=== PATIENT | male | born 1955 | race Caucasian/White ===

== ENCOUNTER 2018-01-07 10:13 | Emergency (ER) | payer OTHER ==
[~2018-01-07] VITALS: Ht 185.4 cm; Wt 110.2 kg
[~2018-01-07 10:13] MED LIST: GLIPIZIDE XL10 MG PO; METFORMIN HCL500 MG PO
[2018-01-07] MEDS ORDERED: LANTUS100 UNITS/ SUB-Q (10:39)
[2018-01-07] MEDS ORDERED: GABAPENTIN100 MG PO (10:41)
[2018-01-07] MEDS ORDERED: NORCO 5-325 TA1 EACH PO (10:51)
== END 2018-01-07 11:21 | disposition home or self-care (01) ==
LOC: ED 10:13
DX: S01.81XA Laceration without foreign body of other part of head, initial encounter (principal); E11.9 Type 2 diabetes mellitus without complications; Z87.891 Personal history of nicotine dependence; Z79.4 Long term (current) use of insulin; Z79.899 Other long term (current) drug therapy; W19.XXXA Unspecified fall, initial encounter; W22.8XXA Striking against or struck by other objects, initial encounter
CPT/HCPCS: 99282

== ENCOUNTER 2018-06-04 18:38 | Inpatient (IN) | payer MEDICARE, OTHER ==
[~2018-06-04] VITALS: Ht 185.4 cm; Wt 102.1 kg
[~2018-06-04 18:38] MED LIST changes: +GABAPENTIN100 MG PO; +LANTUS100 UNITS/ SUB-Q; +NORCO 5-325 TA1 EACH PO
--- NOTE | 2018-06-05 | NUR ---
PT ARRIVED TO UNIT FROM ED VIA STRETCHER IN 4 POINT LOCKED RESTRAINTS, PT AGGITATED AND COMBATIVE WHEN TRANSFERRED TO OTHER BED. 2 MG IV ATIVAN GIVEN. PT SWITCHED TO SOFT RESTRAINTS X 4 EXTREMITIES, WNL. PT NOT ORIENTED, DOES NOT OBEY COMMANDS. PT'S SIGNIFICANT OTHER STATES PT "HATES [facility]" AND THAT PT REFUSES TO SEEK MEDICAL CARE. SHAH TEMP PROB IN PLACE, YELLOW URINE DRAINING, TEMP 100.1. FULL ASSESSMENT TO BE COMPLETED. INSULIN GTT INFUSING AT 5 UNITS/HR.
--- NOTE | 2018-06-05 01:00 | NUR ---
PHONE CALL TO DR. BURGOS REGARDING CBG GREATER THAN 600 AND INSULIN PROTOCOL. PER PROVIDER START INSULIN GTT AT 8.8 UNITS/HR, CONTINUE TO TITRATE EACH HOUR PER INSULIN GTT PROTOCOL FOR CBG GREATER THAN 450, DO NOT EXCEED 20 UNIT/HR, OBTAIN LAB DRAW FOR GLUCOSE ASSESSMENT. INSULIN GTT CURRENT INFUSING AT 8.8 UNITS/HR. LAB TO OBTAIN DRAW. VANCO AND CEFEPIME INFUSING. LR INFUSING AT 200 ML/HR.
--- NOTE | 2018-06-05 02:00 | NUR ---
RESTRAINTS ASSESSED AND WNL. LAB REPORTS GLUCOSE AT 1817. INSULIN GTT TITRATED TO 13.2 UNITS/HR.
--- NOTE | 2018-06-05 03:00 | NUR ---
BEDSIDE CBG GREATER THAN 600. LAB DRAW REPORTS GLUCOSE AT 1754. INSULIN GTT TITATED TO 17.6 UNITS/HR. PT'S VITALS REMAIN UNCHANGED. PT NOTED TO HAVE INCREASED RESTLESS, SIGNIFICANT OTHER AT BEDSIDE REASSURING PT. WILL CONTINUE TO MONTIOR.
--- NOTE | 2018-06-05 03:45 | NUR ---
PT NOTED TO HAVE INCREASED AGGITATION AND COMBATIVE, DOES NOT RESPOND TO VERBAL COMMANDS OR REASSURANCE, 2 MG IV ATIVAN GIVEN. PHONE CALL RC'D FOR CRITICAL LAB VALUE OF SODIUM 91, CALCIUM 5.8. ADDITIONAL LABS SHOW POTASSIUM OF 2.7 AMD GLUCOSE OF 374. PHONE CALL TO DR. BURGOS REGARDING LABS. PER PROVIDER, REPEAT BMP STAT AND OBTAIN BEDSIDE CBG. CBG OBTAINED AND NOTED TO BE 234, INSULIN GTT TITRATED TO 6.8. DR. BURGOS AT BEDSIDE TO ASSESS PT AND UPDATE PLAN OF CARE.
--- NOTE | 2018-06-05 04:45 | NUR ---
DR. BURGOS UPDATED FAMILY ON PLANS OF POSSIBLE TRANSFER. CBG NOTED TO BE 182, INUSLIN GTT TITRATED TO 4.8.
--- NOTE | 2018-06-05 05:15 | NUR ---
REPEAT LABS REVIEWED BY DR. BURGOS AND NOTED TO BE WITHIN NORMAL RANGE, NO TRANSFER AT THIS TIME, FAMILY UPDATED. PER DR. BURGOS, REPEAT CBG Q30M, START D5W, REPEAT LABS AT 0600, START PRECEDEX GTT, CONTINUE TO MONITOR.
--- NOTE | 2018-06-05 05:30 | NUR ---
PRECEDEX GTT INFUSING AT 0.2 MCG/KG/MIN. PT CONTINUE TO BE COMBATIVE AND ATTEMPTING TO PULL OUT SHAH. 0.5 MG ATIVAN GIVEN.
--- NOTE | 2018-06-05 06:00 | NUR ---
PT CONTINUES TO BE AGGITATED AND COMBATIVE PRECEDEX GTT TITRATED TO 0.4 MCG/KG/MIN. CBG 123, INUSLIN GTT TITRATED TO 1.4 UNITS/HR.
--- NOTE | 2018-06-05 06:30 | NUR ---
AGGITATION AND COMMBATIVENESS CONTINUE PRCEDEX GTT TITATED TO 0.8 MCG/KG/MIN.
--- NOTE | 2018-06-05 07:00 | NUR ---
PT RESTING COMFORTABLY IN BED, RESPIRATION EVEN AND UNLABORED. REPORT GIVEN TO DAY SHIFT NURSES.
--- NOTE | 2018-06-05 07:30 | NUR ---
report recieved. CURRENTLY PATIENT IS CALM ON PRECEDEX GTT AT 0.6 MCG/KG/MIN. FAMILY MEMBERS ARE IN ROOM.
--- NOTE | 2018-06-05 08:00 | NUR ---
ASSESSMENT DONE. PATIENT WILL GRIMACE TO PAINFUL STIMULI, NOT FOLLOWING COMMANDS. SHAH CATH IS PATENT WITH GOLD URINE NOTED,REMAINS IN RESTRAINTS. ROM DONE.
--- NOTE | 2018-06-05 09:00 | NUR ---
DR. BURGOS AWARE OF BP, WILL CONTINUE TO MONITOR.
--- NOTE | 2018-06-05 10:50 | NUR ---
LR BOLUS HUNG PER ORDERS BP VIA MONITOR 67/53.
--- NOTE | 2018-06-05 11:00 | NUR ---
LEVOPHED GTT STARTED TO NEWLY STARTED IV SITE TO RIGHT INNER FA. IV TO L HAND INFILTRATED. PRECEDEX AND IVF OF D5 HELD AT THIS TIME, WILL START ANOTHER IV SOON POSSIBLE. LEVOPHED STARTED AT 2 MCG/MIN. LR BOLUS CONTINUE TO INFUSE. SEE VITAL SIGNS FOR BP'S
--- NOTE | 2018-06-05 11:10 | NUR ---
PATIENT IS OUT OF CONTROLL. PULLING ON RESTRAINTS. ATTEMPTING TO SIT UP IN BED, IS ATTEMPTIMG TO SAY FEW WORDS, UNABLE TO UNDERSTAND. UNABLE TO REASON WITH PATIENT. FAMILY IN ROOM. LEVOPHED INFUSING/INSULIN GTT INFUSING/LR BOLUS INFUSING/IVF AND PRECEDEX NOW INFUSING TO [facility] SITE. PRECEDEX INCREASED TO 0.8 MCG/KG/MIN. SEVERAL STAFF MEMBERS ARE IN ROOM.
--- NOTE | 2018-06-05 11:25 | NUR ---
REMAINS OUT OF CONTROLL, DR. BURGOS HERE AND AWARE. ATIVAN 2 MG IV GIVEN.
--- NOTE | 2018-06-05 12:09 | NUR ---
ATIVAN 2 MG IV GIVEN FOR SEVERE AGITATION.
--- NOTE | 2018-06-05 12:20 | NUR ---
MORE CALM NOW. LEVOPHED GTT INCREASED TO 5 MCG/MIN. SEE MONITOR PRINT OUT SHEET FOR FREQ VITAL SIGNS.
--- NOTE | 2018-06-05 12:38 | NUR ---
IS CALM AT THIS TIME. HOB FLAT. LEVOPHED GTT INFUSING AT 5MC/MIN.
--- NOTE | 2018-06-05 13:13 | EKG ---
[facility] [address] [facility] [place], [place] [address] Signed Sinus rhythm Left axis deviation Wide QRS rhythm T waves peaked Abnormal ECG No previous ECGs available Confirmed by AUDREY BURGOS DO ([id number]) on 06/05/2018 1:13:00 PM Electronically Signed By: AUDREY BURGOS DO 06/05/18 1313 PATIENT NAME: MK MILLER ELAINE Electrocardiogram DATE OF : 51 PHYSICIAN: AUDREY BURGOS DO REPORT #: [id number] REPORT IS CONFIDENTIAL AND NOT TO BE RELEASED WITHOUT AUTHORIZATION
--- NOTE | 2018-06-05 13:15 | EKG ---
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
--- NOTE | 2018-06-05 15:10 | NUR ---
RESTFUL SINCE LAST ATIVAN GIVEN AT 1209. TURNING PATIENT TO LISTEN TO LUNGS AND CHANGE BED LINENS. WHEN THIS DONE PATIENT AGAIN BECAME VERY AGITATED, ABLE TO UNDERSTAND FEW WORDS PATIENT SAYING. NOT ABLE TO REASON WITH PATIENT. PRECEDEX INCREASED 0.8 MCG/KG/HR. DR. BURGOS CALLED AND UPDATED ON PATIENT.
--- NOTE | 2018-06-05 15:50 | NUR ---
TOTAL OF 6 MG OF ATIVAN IN 2 MG INC GIVEN OVER A 15 MIN PERIOD.
--- NOTE | 2018-06-05 16:01 | NUR ---
HORTENCIA NOW. PLAN TO START VALIUM AT 1700 and WEAN OF PRECEDEX GTT. THIS PER DR. BURGOS ORDERS.
--- NOTE | 2018-06-05 16:25 | NUR ---
RANDELL VILLAREAL PER ORDERS. NO ORAL CARE GIVEN PATIENT IS VERY SENSITIVE TO CARES DONE.
--- NOTE | 2018-06-05 16:43 | NUR ---
SHORT RUN PAT NOTED ON MNITOR FOLLOWED BY FEW JUNCTIONAL BEATS. HR TO MID 40'S. DR. BURGOS NOTIFED.
--- NOTE | 2018-06-05 16:50 | NUR ---
PRECEDEX GTT TO OFF PER MD ORDERS.
--- NOTE | 2018-06-05 17:00 | NUR ---
VALIUM HELD PATIENT IS SEDATED. RASS-3 T0-4. HAVING SHORT PERIODS OF APNEA O2 SATS TO 88. O2 SOURCE CHANGED TO OXYMASK AT 4 L. NOISEY RESP.
--- NOTE | 2018-06-05 17:00 | NUR ---
REMIANS ON INSULIN GTT WITH HOURLY ACCUCHECKS. INSULIN GTT HAS BEEN TITRATED IS PER PROTOCOL.
--- NOTE | 2018-06-05 17:15 | NUR ---
DR. GREY HERE TO PLACE CVC. THIS DONE TO LEFT SUBCALVIAN. PATIENT TOLERATED WELL. PERMIT SIGNED BY PATIENT DAUGHTER.
--- NOTE | 2018-06-05 18:00 | NUR ---
CHEST XRAY DONE TO CONFIRM LINE PLACEMENT. DR. GREY SAYS OK TO USE.
--- NOTE | 2018-06-05 19:03 | NUR ---
VALIUM 10 MG IV GIVEN, LAST ATIVANN WAS GIVEN BEFORE 4 PM TODAY AND THE ROUTINE VALIUM AT 1700 WAS HELD DUE TO SEDATION.
--- NOTE | 2018-06-05 19:36 | NUR ---
REPORT TO NEXT SHIFT. PATIENT IS RESTFUL AT THIS TIME.
--- NOTE | 2018-06-05 20:21 | NUR ---
BS 146, INSULIN GTT TO 2.7 CONT LEVOPHED AT 7MCG/MIN. PT AT THIS TIME IS RESTFUL AND WAS ABLE TO WASH PT'S FACE. DR BURGOS IN TO CHECK ON PT. DAUGHTERS IN ROOM.
--- NOTE | 2018-06-05 21:16 | NUR ---
BS 117 INSULIN GTT TO 1.2 UNITS/HR. BP 116/74 LEVOPHED TO 5MCG/MIN.
--- NOTE | 2018-06-05 22:19 | NUR ---
CONT TO BE RESTFUL. BS 151, INSULIN TO 2 UNIT/HR.
--- NOTE | 2018-06-05 23:29 | NUR ---
AT 2229 REPOSITIONED PT HE THEN BECAME AGITATED, AND THEN FOUND TO BE INC OF STOOL. BE CARE DONE, PT WAS MORE AGITATED AND HAS BEEN GIVEN VALIUM 10MG AT 2249, 2309 AND 2324. STILL OCC PULLING AT RESTRAINTS. DID VERBALIZE HE WAS GOING TO FIGHT. HAS LOOSE COUGH.
--- NOTE | 2018-06-06 00:10 | NUR ---
PT HAS CONT TO BE AGITATED, VERBALLY THREATENING. UNABLE TO REASON WITH PT. DR BURGOS CALLED. PT HAS BEEN GIVEN TOTAL 3 PERN DOSES OF VALIUM, DR BURGOS CALLED AND ORDER FOR 60MG PHENOBARB RECIEVED. GIVEN WITHOUT EFFECT.
--- NOTE | 2018-06-06 00:44 | NUR ---
INSULIN TITRATED PER PROTOCOL TO 2.4 UNITS PER HR FOR BS OF 215 AT 0010. LEVOPHED OFF AT 0015. DR BURGOS GIVEN UPDATE AND PT RECIEVED 130MG PHENOBARBITOL AT 0015. IS STILL TRYING TO SIT UP. GIVEN 10MG VALIUM IV.
--- NOTE | 2018-06-06 01:10 | NUR ---
BS 220, INSULIN GTT TO 6.8 UNIT/S HR. PT HAD JUST RECIEVED ABX MIXED IN D5W. IS NOW QUIET SINCE LAST VALIUM WAS GIVEN
--- NOTE | 2018-06-06 02:10 | NUR ---
BS 151 INSULIN TO 3 UNITS/HR. IS NOW RESTLESS AND GRUNTING, NO VERBALIZING LIKE EARLIER. UNABLE TO REASURE PT. GIVEN SCHEDULED 20MG VALIUM IV.
--- NOTE | 2018-06-06 02:24 | NUR ---
CONT TO BE TRYING TO SIT UP, NO REASONING WITH PT. GIVEN 20MG VLAIUM IV.
--- NOTE | 2018-06-06 03:22 | NUR ---
BS 119 INSULIN TO 2 UNITS/HR. CONT TO GROWL AND BE AGITATED. GIVEN 20MG VALIUM IV. REMAINS OFF LEVOPHED.
--- NOTE | 2018-06-06 04:20 | NUR ---
INSULIN NOW AT 1.6 UNITS. PT IS MORE RESTFUL AT THIS TIME. ATTENDS DRY.
--- NOTE | 2018-06-06 05:34 | NUR ---
BS 177 INSULIN TO 2.4 UNITS AT 0505. WAS GIVEN 20MG VALIUM AT 0505. CONT TO BE RESTLESS AND VALIUM 20MG IV GIVEN NOW. EXPLAIN TO DAUGHTER THAT PT'S MENTAL STATUS MAY NOT IMPROVE FOR SEVERAL DAYS. GOAL IS TO KEEP PT CALM AND SEDATED FOR NOW.
--- NOTE | 2018-06-06 06:16 | NUR ---
VALIUM REPEATED AT 0605. PT WILL ARCH OFF BED AT TIMES. NO BM NOTED. TOTAL OF 60MG VLAIUM IV GIVEN SINCE 0500. FAMILY AT BEDSIDE. LABS WERE DRAWN PER CENTRAL LINE.
--- NOTE | 2018-06-06 06:47 | NUR ---
DR BURGOS CALLED RE PT BECOMING AGITATED AGAIN. NOTIFIED OF LABS. ORDER RECIEVED.
--- NOTE | 2018-06-06 07:15 | NUR ---
GIVEN 130MG PHENOBARBITOL IV. INSULIN TO 4.6 UNITS FOR BS 189.
--- NOTE | 2018-06-06 07:30 | NUR ---
REPORT RECIEVED. PATIENT IS IN BED, RESTLESS
--- NOTE | 2018-06-06 07:43 | NUR ---
VALIUM 10 MG IV REPEATED, PATIENT REMAINS RESTLESS. DAUGHTER IS IN ROOM.
--- NOTE | 2018-06-06 08:00 | NUR ---
ASSESSMENT DONE. ACCUCHECK-176, INSULIN GTT TO 3.6 PER INFUSION RATE SHEET. REMAINS RESTLESS AFTER PHENOBARB GIVEN.
--- NOTE | 2018-06-06 08:15 | NUR ---
DR. BURGOS UPDATED ON PATIENT, ORDERS RECIEVED TO REPEAT PHENABARB 130 MG IV, THIS TO BE DONE.
--- NOTE | 2018-06-06 09:40 | NUR ---
IS RESTLESS, DR. BURGOS AWARE, ORDERS RECIEVED TO GIVEN ATIVAN 2 MG IV.
--- NOTE | 2018-06-06 09:53 | NUR ---
ATIVAN 2 MG IV GIVEN PER ORDERS.
--- NOTE | 2018-06-06 12:10 | NUR ---
PT AT THIS TIME IS ONLY A LITTLE RESTLESS. PT HAS BEEN COUGING UP SOME PHLEM AND PT LET ME SUCTION IT OUT. SIGNIFICANT OTHER IS AT BEDSIDE. WILL CONTINUE TO MONITOR.
--- NOTE | 2018-06-06 13:34 | NUR ---
ativan 2 mg iv GIVEN. VERY RESTLESS.
--- NOTE | 2018-06-06 14:00 | NUR ---
ACCUCHECK 228, INSULIN GTT TO 6.8 UNITS/HR. REMAINS RESTLESS.
--- NOTE | 2018-06-06 15:00 | NUR ---
RESTLESS, REPOSITIONED. MOANING. ACCUCHECK 190. INSULIN GTT TO 5.6 UNITS/HR.
--- NOTE | 2018-06-06 15:15 | NUR ---
AIVAN 3 MG IV GIVEN FOR AGITATION/ANXIETY. REMAINS IN RESTRAINTS IS VERY UNPREDICABLE BEHAVIOR.
--- NOTE | 2018-06-06 16:00 | NUR ---
REMAINS RESTLESS. NO TREAMENT GIVEN AT THIS TIME. MOANS. MOVES BODY FREQUNETLY IN BED. SHAH PATENT WITH GOLD URINE. ASSESSMENT UNCHANGED.
--- NOTE | 2018-06-06 20:30 | NUR ---
PT OCC MOANS, GRUNTS AND MOVES WITHOUT APPARENT PURPOSE. WILL OCC PULL AT RESTRAINTS. WAS GIVEN 2MG ATIVAN IV AT 1999 PT STARTING TO BECOME INCREASED RESTLESS WITH NURSING CARE. FACE WASHED, CATH CARE DONE. ORAL CARE DONE. HAS DRY WHITE PATCHY SKIN ON LIPS AND TOUNGUE, MOUTH MOISTUIZER APPLIED. PT ABLE TO SETTLE AFTER CARES FINISHED.
--- NOTE | 2018-06-06 21:10 | NUR ---
BS 167 INSULIN FROM 2.7 TO 3.6 UNITS PER PROTOCOL.
--- NOTE | 2018-06-06 22:10 | NUR ---
HAS BEEN MORE RESTFUL TONIGHT. BS 155 INSLUIN TO 2 UNIT/S HR.
--- NOTE | 2018-06-06 23:20 | NUR ---
BS 180 INSULIN TO 2.4UNITS.
--- NOTE | 2018-06-07 00:15 | NUR ---
PT HAS BEEN MORE RESFUL TONIGHT. INC SMALL AMT STOOL, BE CARE DONE DRAW SHEET CHANGED AND PT REPOSITIONED. WAS ABLE TO GIVE ORAL CARE. WILL OCC MOAN/LAMIN.
--- NOTE | 2018-06-07 00:15 | NUR ---
Y ADDENDUM, BS 162 INSLUIN GTT TO 2 UNITS/HR.
--- NOTE | 2018-06-07 02:15 | NUR ---
BS 181, NO CHANGE IN INSULIN GTT. PT GIVEN ORAL CARE AND REPOSITIONED. MILDLY RESISTED ORAL CARE BUT WAS ABLE TO SETTLE. CONT TO HAVE WHITE PATCHY AREA ON FRONT OF TOUNGUE.
--- NOTE | 2018-06-07 03:25 | NUR ---
BS, 169, NO CHANGE IN INSULIN GTT. SCHEDULED DOSE OF ATIVAN HELD PT ADEQUATELY SEDATED AT THIS TIME.
--- NOTE | 2018-06-07 04:10 | NUR ---
BS 192, INSULIN GTT TO 4.2 UNIT/HR. PT REPOSITIONED AND MOIST SWAB TO MOUTH. WILL OCC COUGH BUT STILL RESTFUL.
--- NOTE | 2018-06-07 05:20 | NUR ---
BS WAS 193 AT 0500, NO CHANGE IN GTT. PT IS BECOMING MORE RESTLESS, MOVING HANDS RANDOMLY AND TRYING TO ARCH BACK. GIVEN 2MG ATIVAN IV. RESTRAINTS TO LOWER EXTREMITIES ARE UNTIED. CONT WRIST RESTRAINTS TO PROTECT SUBCLAVIAN. SUCTIONED ORALLY FOR MOD AMT SALIVA AND SPUTUM PT WAS TRYING TO CLEAR THROAT.
--- NOTE | 2018-06-07 06:05 | NUR ---
RESTING QUIETLY NOW. BS 154 INSULIN TO 2 UNITS /HR.
--- NOTE | 2018-06-07 08:00 | NUR ---
ASSESSMENT DONE. ATIVAN 2 MG IV GIVEN PATIENT IS SOMEWHAT RESTLESS. ROUTINE MEDICATIONS GIVEN. RESTRAINTS OFF FOR ROM.
--- NOTE | 2018-06-07 08:20 | NUR ---
ROUTINE AM CARES GIVEN, TOLEATING WELL WITH ATIVAN GIVEN EALIER. RESTRAINTS ARE NOT TIED AT THIS TIME. MOANING AT TIMES.
--- NOTE | 2018-06-07 09:00 | NUR ---
SITTING UP IN BED IN CHAIR POSITION, O2 TO 1 LITER. HAS OCC LOOSE COUGH.
--- NOTE | 2018-06-07 09:30 | NUR ---
DR. BURGOS HERE TO SEE PATIENT. ORDERS RECIEVED.
--- NOTE | 2018-06-07 09:55 | NUR ---
PHYS THERAPY HERE TO WORK WITH PATIENT. REMAINS IN SITTING POSITION. HAS EYES OPEN MORE THIS MORNING.
--- NOTE | 2018-06-07 10:15 | NUR ---
SPOKE WTIH PATIENTS FRIEND FRANCESCA IN ROOM. PATIENT STILL DROWSY AND IS NOT ANSWERING QUESTIONS. SHE STATES HE LIVES ALONE IN BASEMENT APARTMENT. SHE STATES SHE CAN STAY WITH HIM WHEN HE GOES HOME, IF NEEDED. DISCUSSED WE WON'T KNOW UNTIL CLOSER TO DISCHARGE WHAT HIS NEEDS WILL BE. SHE STATES HE NORMALLY DOES NOT USE ANY DME. SHE DENIES QUESTIONS AT THIS TIME. WILL CONTINUE TO FOLLOW.
--- NOTE | 2018-06-07 10:30 | NUR ---
lantus 35 UNITS SQ GIVEN PER ORDERS. WILL DC INSULIN GTT IN 1 HR PER MD ORDERS.
--- NOTE | 2018-06-07 12:00 | NUR ---
ASSESSMENT DONE. REMAINS RESTFUL. LAST ATIVAN GIVEN AT 808 THIS AM. FRIEND REMAINS IN ROOM. SHAH CATH REMAINS PATIENT. RESTRAINTS OFF.
--- NOTE | 2018-06-07 13:06 | NUR ---
SPOKE WITH DAUGHTER KOREY BY PHONE [phone]. SHE STATES HER DAD LIVES IN A BASEMENT APARTMENT. DOES NOT HAVE AMBULATION ISSUES. THERE ARE APPROX 1O OR MORE STEPS TO APARTMENT. SHE STATES HE LIVES ALONE. SHE STATES HE HAS BEEN VERY "STUBBORN ABOUT FOLLOWING DR ORDERS OR TAKING MEDICATIONS". SHE STATES SHE HAS A SISTER AND BROTHER. NO POA IS KNOWN. SHE STATES HIS FRIEND FRANCESCA DOES NOT LIVE WITH HIM. SHE STATES UNDERSTANDING THAT HE MAY NEED REHAB, OR OTHER CARE FOR AWHILE. SHE UNDERSTANDS WE WON'T KNOW WHAT ALL HE WILL NEED UNTIL HE IS FUTHER ALONG IN HIS ACUTE PHASE. WE DISCUSSED WE MAY HAVE A CARE CONFERENCE IN A FEW DAYS AND WHAT THAT IS. SHE STATES HE IS A , BUT IS UNSURE WHAT BENEFITS HE HAS. SHE HAS NO QUESTIONS AT THIS TIME. WILL CONTINUE TO FOLLOW.
--- NOTE | 2018-06-07 13:26 | NUR ---
REMAINS RESTFUL. ACCUCHECK 204, KCL INFUSING. MAINTANCE IVF HELD WHILE KCL INFUSING.
--- NOTE | 2018-06-07 14:00 | NUR ---
NO CHANGES. NO ATIVAN GIVEN SINCE APPROX 0800 THIS AM
--- NOTE | 2018-06-07 14:57 | NUR ---
PT UNRESPONSIVE, SIG OTHER SEPIDEH IN RM WITH PT. SHE IS PLEASANT AND QUITE FRIENDLY-REQUESTED PRAYER FOR PT. WILL CONTINUE TO FOLLOW NEEDED
--- NOTE | 2018-06-07 16:00 | NUR ---
RESTLESS AT TIMES, BUT ABLE TO CONTROL. IS ATTEMPTIMG TO SAY FEW WORD AT TIME. REPOSITION SELF IN BED. SKIN INTACT.
--- NOTE | 2018-06-07 18:28 | NUR ---
visiting with family/ FRIENDS. PABLO PENA, TAKING CLEAR LIQUIDS.
--- NOTE | 2018-06-07 19:21 | NUR ---
REPORT TO NEXT SHIFT. NO FUTHER CHANGES.
--- NOTE | 2018-06-07 19:30 | NUR ---
REPORT RC'D FROM DAY SHIFT NURSE. PT CURRENTLY RESTING INEBD WITH EYES CLOSED, RESPIRATIONS EVEN AND UNLABORED.
--- NOTE | 2018-06-07 20:19 | OR ---
[facility] [address] [place], [place] [address] Signed DATE OF OPERATION: 06/05/2018 SURGEON: Nohemy Grey MD PREOPERATIVE DIAGNOSES: Hypotension, severe metabolic abnormalities, need for central venous access. POSTOPERATIVE DIAGNOSES: Hypotension, severe metabolic abnormalities, need for central venous access. PROCEDURE PERFORMED: Left subclavian Arrow Blue Tip triple-lumen catheter placement. ANESTHESIA: 1% lidocaine. INDICATION: A 63-year-old white man is in a sedated state, previously very combative, admitted with acidosis including a lactic acid of 6.6 and diabetes out of control. He is on an insulin drip. Central venous access is requested as he does require pressor agent to maintain reasonable blood pressure at this time. The risks of bleeding, infection, pneumothorax, and so forth were reviewed with his two daughters and significant other, who provided administrative informed consent to him at this time. FINDINGS: Dark, nonpulsatile blood was noted from the left subclavian vein. Catheter threaded without problem. Aspiration showed good function of the catheter. DESCRIPTION OF PROCEDURE: The patient was placed in supine position. His head turned slightly to the right. The left infraclavicular space was prepared with chlorhexidine solution and draped sterilely. Lidocaine 1% was injected without causing any disruption to the patient. Sterile drape was used of course as were sterile gown, gloves, and so forth per hospital protocol. Using a Seldinger technique, the left clavicular space was interrogated with a needle and using a Seldinger technique the left subclavian vein easily accessed showing dark nonpulsatile blood. A flexible J-wire was passed down the wire without problem and the needle was removed. The site was incised with an #11 blade and a previously inspected and irrigated Arrow Blue Tip triple-lumen catheter was passed over the wire without problem and the wire withdrawn through the distal port. Aspiration on the distal port showed dark nonpulsatile blood. Claves had been applied to the ports Electronically Signed By: NOHEMY GREY MD 06/07/182018 PATIENT NAME: MK MILLER OPERATIVE REPORT DATE OF : 51 REPORT #: [id number] PHYSICIAN: NOHEMY GREY MD PCP: DARREL KELLY REPORT IS CONFIDENTIAL AND NOT TO BE RELEASED WITHOUT AUTHORIZATION [address] [address] Signed and they were flushed. Catheter was secured to the skin with enclosed Kirt needle and silk suture. An anti-infective disk was applied as was a SorbaView dressing. A postprocedure chest x-ray was performed in the intensive care unit confirming good placement of the catheter, no sign of complication. MD CHADWICK Barrera/MODL /[id number] cc: MD Darrel Parker Copies: AUDREY BURGOS BRUCE ~ Electronically Signed By: NOHEMY GREY MD 06/07/182018 PATIENT NAME: MK MILLER OPERATIVE REPORT DATE OF : 51 REPORT #: [id number] PHYSICIAN: NOHEMY GREY MD PCP: DARREL KELLY REPORT IS CONFIDENTIAL AND NOT TO BE RELEASED WITHOUT AUTHORIZATION
--- NOTE | 2018-06-07 20:19 | CONS ---
[facility] [address] [place], [place] [address] Signed DATE OF CONSULTATION: 06/05/2018 CONSULTING PHYSICIAN: Nohemy Grey MD PROBLEM: Need for central venous access, hypotension, on pressors, and advanced DKA. HISTORY: This 63-year-old white man, was admitted to the hospital with very much altered consciousness. 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 He had profound confusion and was walking around on broken glass with a cut to his foot. He is known to have significant diabetes and is completely noncompliant in taking of his medication and watching diet and so forth. He also smokes. He has been feeling poorly for the past year or so. He is known to have chronic obstructive pulmonary disease as well. He reportedly uses methamphetamine and marijuana from time to time as well. He has been admitted and required pressor agents as well as significant sedation due to delirium and combativeness. Recently, a norepinephrine drip has been initiated and request is made for a central venous catheter for reliable infusion as well as for IV access for other purposes. LABORATORY DATA: His admission lab studies to show a sodium of only 116, potassium of 6.6, creatinine of 1.86. Lactic acid of 6.6. More recent lab studies today showed an elevated white count of 20.5 (initial white count 9.5), hematocrit of 48.5, and platelet count of 190,000. Toxicology screen showed no illicit drugs in system. Alcohol level negligible and acetone level 1 to 16. Urinalysis was essentially normal except for large urine glucose. Coag studies are normal. His ABG today shows a venous pH of 7.44, O2 of 66. REVIEW OF SYSTEMS: He is unable to communicate anything about his situation. He appears to be deeply sedated. He is accompanied by his two daughters and his significant other. PHYSICAL EXAMINATION: GENERAL: A large white male with a thick bravo. He is breathing deeply, but not excessively rapidly. He is unresponsive to stimulation overall. CHEST: Shows normal respiratory excursion. There is no audible wheeze. ABDOMEN: Nondistended and soft. EXTREMITIES: Show no clubbing, cyanosis, or edema. Blood pressure with pressor agent currently is 131, peripheral blood cuff noted. He has no angulation deformity of the clavicles. Electronically Signed By: NOHEMY GREY MD 06/07/182018 PATIENT NAME: MK MILLER CONSULTATION DATE OF : 51 REPORT #: [id number] PHYSICIAN: NOHEMY GREY MD PCP: SIDNEY KELLY REPORT IS CONFIDENTIAL AND NOT TO BE RELEASED WITHOUT AUTHORIZATION [facility] [address] [place], [place] [address] Signed ASSESSMENT: Central venous access has been requested for further management to include pressor agents, blood draws, and so forth. The patient is usually quite combative and is currently in a sedated, state for which this may be a window of opportunity for safe placement of a central line. The subclavian approach in the left side would be optimal considering his thick bravo and access to the right internal jugular being somewhat limited in that way. I reviewed with the two daughters and his significant other the risks of bleeding, infection, pneumothorax, and so forth. They understand and have signed in his absence a consent form. PLAN: Central venous line, Arrow blue tip triple-lumen catheter preferred. MD CHADWICK Barrera/MARYAML /[id number] Copies: ~ Electronically Signed By: NOHEMY GREY MD 06/07/182018 PATIENT NAME: MK MILLER CONSULTATION DATE OF : 51 REPORT #: [id number] PHYSICIAN: NOHEMY GREY MD PCP: SIDNEY KELLY REPORT IS CONFIDENTIAL AND NOT TO BE RELEASED WITHOUT AUTHORIZATION
--- NOTE | 2018-06-07 20:51 | NUR ---
PT RESTING IN BED, MEDICATED, RESPONDS TO PRESSURE AND SOUND. SINUS RHYTHM ON MONITOR. BUL CLEAR AND DIMINSHE DIN BLL, OCCANSSIONAL HARCH COUGH WITH THICK WHITE SPUTUM, ORAL CARE PROVIDED. BOWEL TONES ACTIVE. SHAH CATH IN PLACE DRAINING TEA COLORED URINE WITH SEDIMENT. LEFT ARM/HAND RED AND WARM, ELEVATED ON PILLOW. ROM PROVIDED. SPO2 96% ON ROOM AIR.
--- NOTE | 2018-06-07 22:00 | NUR ---
NO ACUTE CHANGES.
--- NOTE | 2018-06-07 23:00 | NUR ---
NO ACUTE CHANGES. RESPIRATIONS EVEN AND UNLABORED.
--- NOTE | 2018-06-08 00:45 | NUR ---
NO ACUTE CHANGES IN ASSESSMENT. RESPIRATIONS EVEN AND UNLABORED. NO ACUTE DISTRESS.
--- NOTE | 2018-06-08 02:16 | NUR ---
PT ABLE SPIT OUT VERY LARGE AMT OF VERY THICK TENACIOUS FISH, YELLOW SPUTUM. WAS ABLE TO DO ORAL CARE AND REMOVED LARGE AMT OF THICK SECRETIONS. STILL HAS WHITE SECRETIONS ADHERED TO ROUGH OF MOUTH AND FRONT OF TOUNGUE.
--- NOTE | 2018-06-08 02:30 | NUR ---
LARGE SOFT BM, LINEN CHANGED, PT REPOSITIONED, ROM PROVIDED.
--- NOTE | 2018-06-08 04:45 | NUR ---
NO ACUTE CHANGES.
--- NOTE | 2018-06-08 06:41 | NUR ---
PT MORE AWAKE AND REQUESTING WATER, PROVIDED, TOLERATED WELL. PT VERBALIZED, "MY ARM HURTS" ASKED IF HE WOULD LIKE A WARM BLANKET, REPLIED "YES," PROVIDED, ASKED IF IMPROVED, PT STATES "YES." PT ABLE TO OPEN EYES WITH COMMAND. PT REQUESTING TO SIT UP, HOB ELEVATED. PT RESTLESS IN BED. WILL CONTINUE TO MONITOR.
--- NOTE | 2018-06-08 06:56 | NUR ---
PT MORE RESTLESS AND ATTEMPING TO GET OUT OF BED. PT STATES,"I GOT TO LEAVE" ATTEMPTED TO REASSURE PT, UNABLE TO CALM. PT ATTEMPTING TO GET OUT OF BED.
--- NOTE | 2018-06-08 07:30 | NUR ---
REPORT RECIEVED. PATIENT IS MOVING AROUND IN BED, IS RESTLESS.
--- NOTE | 2018-06-08 07:50 | NUR ---
OOB TO CHAIR VIA OVERHEAD LIFT.
--- NOTE | 2018-06-08 08:41 | NUR ---
PATIENT UP TO RECLINER WITH 3 PERSON ASSIST AND KRISTIE. PATIENT RECLINED BACK, MUMBLING WITH SLURRED SPEECH. PATIENT ASKED FOR WATER, WHEN A DRINK WAS PROVIDED PATIENT STATED " FUCK THIS WATER". OFFERED OTHER, PATIENT STATED " [place]". PROVIDED PATIENT WITH BITES OF [place]ER[place]INA, TOLERATED WELL. DR. BURGOS TO ROOM TO ROUND. NO NEW ORDERS AT THIS TIME. MORNING MEDICATIONS ADMINISTERED. CBG 232, SLIDING SCALE PROVIDED. CENTRAL LINE FLUSHES AND DRAWS BACK BLOOD FROM ALL THREE PORTS, HEP LOCKED. FULL BODY ASSESMENT DONE. SIGNIFICANT OTHER SEPIDEH AT BEDSIDE. CONTINUING TO REPOSITION PATIENT IN RECLINER, KEEPS TRYING TO SLIDE OUT THE BOTTOM, STATES " GET ME OUT OF HERE".
--- NOTE | 2018-06-08 10:07 | NUR ---
PROVIDED PATIEN WITH BED BATH, PATIENT HAD BM, BACK TO BED WITH KRISTIE AND 3 PERSON ASSIST. PATIENT VERBALIZES "I AM HURTING EVERYWHERE". REPOSITIONED WITH PILLOWS, ADMINISTERED 650 MG OF TYELENOL AND 2 MG ATIVAN PO.
--- NOTE | 2018-06-08 11:10 | NUR ---
RESTFUL AT THIS TIME. IVF INFUSING TO LEFT SUBCLAVIAN, SHAH CATH PATENT.
--- NOTE | 2018-06-08 12:30 | NUR ---
trying to GET OOB, ON BEDPAN TO ATTEMPT BM. SPEECH IS SLURRED, SAYING GET ME UP. RESTLESS.
--- NOTE | 2018-06-08 13:30 | NUR ---
VERY RESTLESS, ACTING THOUGH HE NEEDS TO HAVE ANOTHER BM. PLACED PATIENT ON BED ADDISON. SMALL STOOL NOTED AT RECTUM. PATIENT IS SAYING HE WANTS OOB. NO ABLE O REASON WITH PATIENT. MOVING AROUND IN BED ALOT. RECTAL DONE. LARGE AMOUNT OF STOOL NOTED IN RECTUM. AWARE. NAYA CHAPA ORDERED.
--- NOTE | 2018-06-08 13:38 | NUR ---
FLEETS ENEMA GIVEN, THEN USED OVERHEAD LIFT TO TRANSFER TO COMMODE. WAS ABLE TO HAVE LARGE BM WHILE ON COMMODE, THEN TRANSFERRED BACK TO BED WITH LIFT.
--- NOTE | 2018-06-08 14:00 | NUR ---
VERY RESTLESS. TRYING TO GET OOB. ATIVAN 2 MG IV GIVEN. PT REPEATS SELF SAYING GET ME UP.
--- NOTE | 2018-06-08 14:05 | NUR ---
PULLING AT GOWN AND BED LINENS. GOWN OFF.
--- NOTE | 2018-06-08 16:00 | NUR ---
ASSESSMENT DONE. MOANING, SAYING FEW WORDS. RESTLESS.
--- NOTE | 2018-06-08 16:30 | NUR ---
MORE CALM AFTER HOB ELEVATED.
--- NOTE | 2018-06-08 17:00 | NUR ---
SLEEPING, NO DISTRESS NOTED.
--- NOTE | 2018-06-08 19:00 | NUR ---
REMAINS ASLEEP. NO DISTRESS NOTED. REPORT TO NEXT SHIFT.
--- NOTE | 2018-06-08 19:50 | NUR ---
MED REC COMPLETE
--- NOTE | 2018-06-08 20:44 | NUR ---
HAS BEEN INCREASINGLY AGITATED AND TRYING TO GET OOB. UNABLE TO RATIONLIZE WITH PT. PT ALSO MAKING SEXUALLY INNAPROPRIATE COMMENTS. HAVE GIVEN ATIVAN 2MG IV X2 TIMES IN PAST 30MIN FOR AGITATION.
--- NOTE | 2018-06-08 21:20 | NUR ---
PT HAS CONT TO TRY TO GET UP AND NOT FOLLOW INSTRUCTIONS, PULLING AT WIRES AND COVERS. GIVEN 4MG ATIVAN IV.
--- NOTE | 2018-06-08 22:13 | NUR ---
CONT TO BE RESTLESS. GIVEN 2MG ATIVAN IV. HAVE HAD A NURSE AT BEDSIDE SINCE 1999.
--- NOTE | 2018-06-08 22:55 | NUR ---
PT REMAINS RESTLESS, 2MG ATIVAN IVP GIVEN, CONTIOUES TO RAISE UP OUT OF THE BED, THROW LEGS OVER THE RAILS, NOT REDRICTABLE.
--- NOTE | 2018-06-08 23:34 | NUR ---
CONT TO BE RESTLESS AND KICKING WITH LEGS. GIVEN 4MG ATIVAN IV.
--- NOTE | 2018-06-08 23:49 | NUR ---
PT HAS INC OF STOOL 2200, BE CARE DONE.
--- NOTE | 2018-06-09 00:33 | NUR ---
HAS BEEN ABLE TO SLEEP SINCE LAST DOSE OF ATIVAN. SAT TO 87%, 02 1 NC APPLIED AND SAT IN TO 96%.
--- NOTE | 2018-06-09 02:35 | NUR ---
YBS 136, NO INSULIN GIVEN. RESTFUL THOUGH DOES RESPOND TO PAINFUL STIM BY MOVING AWAY.
--- NOTE | 2018-06-09 04:30 | NUR ---
RESTLESS. INC LARGE LIQ STOOL. BE AREA CLEANED. CONT RESTLESS PULLING AT LEADS ETC AND UNABLE TO FOLLOW DIRECTIONS. GIVEN 2MG ATIVAN IV. R HEEL NOTED TO BE REDDENED FROM PUSHING ON BED AND BEDDING SO FREQ.
--- NOTE | 2018-06-09 04:49 | NUR ---
CONT RESTLESS AND TRYING TO GET OOB. GIVEN 4MG ATIVAN IV
--- NOTE | 2018-06-09 05:04 | NUR ---
WILL GROAN LOADLY AND TURN SIDE TO SIDE. WHEN ASKED WHAT IS WRONG PT STATES "MY BELLY". BOWEL TONES ARE VERY ACTIVE, ABD IS SOFT. IS PASSING GAS AND DID JUST HAVE LIQ STOOL.
--- NOTE | 2018-06-09 05:25 | NUR ---
PT TURNED SELF TO R SIDE AND FELL ASLEEP.
--- NOTE | 2018-06-09 06:44 | NUR ---
SLEEPING AT THIS TIME.
--- NOTE | 2018-06-09 07:30 | NUR ---
PT SHIFT REPORT RECEIVED FROM PROCUREMENT PROFESSIONAL RN. PT IS RESTING IN BED AT THIS TIME. PT IS MOVING IN BED AND SPEECH IS GARBLED. PT IS CONFUSED AND NOT MAKING SENSE. PT OCCASSIONALLY TTRYING TO SIT UP. WILL CONTINUE TO CLOSELY MONITOR.
--- NOTE | 2018-06-09 09:15 | NUR ---
PT ASSESSMENT COMPLETED. BREATH SOUNDS CLEAR. BOWEL TONES ACTIVE. PT DOES NOT WAKE MUCH WITH STIMULATION AT THIS TIME. WILL CONTINUE TO CLOSELY MONITOR. MD DURAN TO CHANGE MEDICATION ORDERS. SHAH REMAINS IN PLACE WITH YELLOW URINE PRESENT.
--- NOTE | 2018-06-09 11:45 | NUR ---
PT AWAKE AND TALKING AND FOLLOWING SOME COMMANDS. PT ALLOWED STAFF TO CHANGE HIS ATTENDS AND REPOSITION HIM IN BED. EARLY INTERVENTION SCHOOL PSYCHOLOGIST IN TO HELP WITH BED BATH AND LINEN CHANGE. PT TOLERATED WELL. PT SPEACH IS GARBLED AND PT REMAINS CONFUSED, BUT IS ABLE TO FORM SENTENCES. WILL GIVE PO MEDICATION WHILE PT IS AWAKE.
--- NOTE | 2018-06-09 12:00 | NUR ---
ORAL MEDICATIONS GIVEN WITH SOME PUDDING. PT TOELRATED WELL. PT IS YELLING AT TIMES AND SAYING INNAPPROPRAITE COMMENTS TO STAFF. WILL CONTINUE TO CLOSELY MONITOR. PT IS OCCASSIONALLY SITTING UP AND TRYING TO GET OUT OF BED. MANAGER INTEGRATED AT BEDSIDE.
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
--- NOTE | 2018-06-09 12:45 | NUR ---
POLICE GUARD RN IN WITH PATIENT FOR HIS SAFETY TO PREVENT HIM FROM HURTING STAFF OR PULLING OUT LINES/TUBES AND HURTING HIMSELF. PT IS NOT FOLLOWING ANY COMMANDS AT THIS TIME. PER MD DURAN GIVE 5MG OF ATIVAN IV. WILL CONTINUE TO CLSOELY MONITOR.
--- NOTE | 2018-06-09 13:00 | NUR ---
PT MORE RELAXED AT THIS TIME AND NOT PULLING AT HIS TUBES/LINES. PT IS NO LONGER BEING AGGRESSIVE TOWARDS STAFF OR YELLING INAPROPRIATE/SEXUAL COMMENTS AT STAFF. WILL CONTINUE TO CLOSELY MONITOR.
--- NOTE | 2018-06-09 14:00 | NUR ---
PT RESTING IN BED AND THROWING HIS LEGS OUT OF BED OCCASIONALLY. SHAH REMAINS IN PLACE WITH YELLOW URINE NOTED. CENTRAL LINE REMAINS IN PLACE. PT RESTING AT THIS TIME. WILL CONTINUE TO CLOSELY MONITOR.
--- NOTE | 2018-06-09 16:00 | NUR ---
PT SHAH EMPTIED. ASSESSMENT REAMISN UNACHANGED FROM PREVIOUS ASSESSMENT. PT CONTINUES TO REST AT THIS TIME. REPOSITIONED PT FOR COMFORT. WILL CONTINUE TO CLOSELY MONITOR.
--- NOTE | 2018-06-09 17:00 | NUR ---
UPDATED ROGER GRIFFITHS REGARDING MAGNESIUM LAB THAT WAS ADDED ON THIS AM. NO NEW ORDERS AT THIS TIME. WILL CONTINUE TO CLOSELY MONITOR. PT REMAINS RESTFUL AT THIS TIME.
--- NOTE | 2018-06-09 18:30 | NUR ---
PT REPOSITIONED WITH PILLOW SUPPRT. PT MOUTH SUCTIONED. PT DID NOT WAKE WITH MOVEMENT OR SUCTIONING. PT GROANED WHEN MOVED, BUT TOLERATED WELL. PT CONTINUES RESTING AFTER MOVEMENT. WILL CONTINUE TO CLSOELY MONITOR.
--- NOTE | 2018-06-09 19:20 | NUR ---
RECEIVED REPORT FROM CORDELL DENNY. PATIENT IS RESTFUL WITH EYES CLOSED, BREATHING IS EVEN AND UNLABORED, O2 SATURATION IS 99% ON 2L O2 VIA OXYMASK, TITRATED TO ROOM AIR. SHAH INTACT, DRAINING YELLOW URINE. CENTRAL LINE INTACT, IVF INFUSING PER ORDER. CALL LIGHT WITHIN REACH, BED ALARM ON.
--- NOTE | 2018-06-09 20:13 | NUR ---
PATIENT IS RESTFUL WITH EYES CLOSED, BREATHING IS EVEN AND UNLABORED, CIWA 0. CENTRAL LINE DRESSING INTACT, IVF INFUSING PER ORDER. SHAH PRESENT, DRAINING QS YELLOW URINE. CALL LIGHT WITHIN REACH.
--- NOTE | 2018-06-09 20:52 | NUR ---
PATIENT REPOSITIONING SELF IN BED, DOES NOT APPEAR TO BE IN DISTRESS. DOES NOT OPEN EYES TO VOICE BUT MOANS WHEN VERBALLY STIMULATED. REMAINS RESTFUL, BREATHING IS EVEN AND UNLABORED, SPO2 97% ON ROOM AIR. CALL LIGHT WITHIN REACH, BED ALARM ON.
--- NOTE | 2018-06-09 22:00 | NUR ---
PATIENT IS MOVING OFTEN IN BED, GROANING LOUDLY STATING "GET ME UP." ASSISTED PATIENT WITH REPOSITIONING ON SIDE, PROVIDED WARM BLANKET. AFTER FIVE MINUTES, PATIENTS EYES CLOSED AGAIN AND IS NOW RESTFUL. CALL LIGHT WITHIN REACH.
--- NOTE | 2018-06-09 23:10 | NUR ---
PATIENT RESTFUL WITH EYES CLOSED, BREATHING IS EVEN AND UNLABORED. CIWA 0. SHAH DRAINING YELLOW QS URINE, CENTRAL LINE INTACT, INFUSING IVF PER ORDER. CALL LIGHT WITHIN REACH, BED ALARM ON.
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
--- NOTE | 2018-06-10 01:20 | NUR ---
PATIENT CONTINUES TO YELL "I HAVE TO TAKE A SHIT. HELP ME UP." EDUCATED PATIENT ABOUT FALL PREVENTION AND THAT IT IS NOT SAFE TO STAND AT THIS TIME. PATIENT STATES "I DON'T CARE, I JUST NEED TO POOP AND TAKE A PISS." EDUCATED PATIENT THAT HE HAS SHAH CATHETER, PLACED ON BEDPAN. THIS RN AN KAYLYNN DIXON REMAIN AT BEDSIDE.
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
--- NOTE | 2018-06-10 02:20 | NUR ---
UPDATED DR. ROGER PEARL PATIENT'S CONTINUED AGITATION, RASS SCORE +4. 5 MG IV HALDOL X1 ORDERED. RN NAHOMY, RN EVANGELISTA, KAYLYNN DIXON AT BEDSIDE. DRESSING CHANGED FOR CENTRAL LINE DONE DUE TO PATIENT SCRATCHING DRESSING OFF. CENTRAL LINE REMAINS INTACT.
--- NOTE | 2018-06-10 05:15 | NUR ---
PATIENT RESTFUL WITH EYES CLOSED, BREATHING IS EVEN AND UNLABORED, REQUIRED O2 THERAPY WITH OXYMASK DUE TO SPO2 OF 87% AT REST. HEART RATE WELL CONTROLLED, RR 19. RASS 0. CENTRAL LINE REMAINS INTACT, IVF INFSUING PER ORDER, SHAH CATHETER ALSO REMAINS INTACT. THIS RN REMAINS AT BEDSIDE FOR SAFETY.
--- NOTE | 2018-06-10 05:54 | NUR ---
PATIENT RESTFUL WITH EYES CLOSED, RASS SCORE +1. CENTRAL LINE REMAINS INTACT, SHAH INTACT. CALL LIGHT WITHIN REACH, BED ALARM ON.
--- NOTE | 2018-06-10 11:20 | NUR ---
PABLO CORBETT DC'D PER 'S ORDERS. PT NAZANIN WELL.
--- NOTE | 2018-06-10 12:00 | NUR ---
VS HAVE BEEN TAKEN AND DOCUMENTED. PT IS RESTING IN BED AT THIS TIME. WILL INFORM RN OF VSS. DAUGHTER IS AT THE BEDSIDE AND HAS NO NEEDS AT THIS TIME. CALL LIGHT IS IN REACH. WILL CONTINUE TO MONITOR PT.
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
--- NOTE | 2018-06-10 19:30 | NUR ---
REPORT RECEIVED, PT RESTING IN BED, EYES CLOSED, BREATHS EVEN, UNLABORED, ON RA, IV FLUIDS INFUSING PER EMAR, VSS, NO REQUESTS AT THIS TIME, NO SIGNS OF RESTLESNESS OR AGITATION, CALL LIGHT WITHIN REACH, BED ALARM ON.
--- NOTE | 2018-06-10 20:22 | NUR ---
PATIENT RESTLESS AND AGITATED, RASS SCORE +2, RASS SCORE +3 WITH INTERACTION WITH STAFF. 2MG IV PRN HALDOL GIVEN. CALL LIGHT WITHIN REACH, BED ALARM ON. CORDELL BROWNELE AT BEDSIDE.
--- NOTE | 2018-06-10 21:00 | NUR ---
PT RESTING IN BED, ALERT, UNABLE TO ASSESS ORIENTATION, PT ABLE TO OCCASIONALLY COMMUNICATE NEEDS WITH SHORT PHRASES, OCCASIONAL GRIMACES AND GROANS NOTED, PT GIVEN PRN HALDOL BY CORDELL VICK, SEE NOTES. PT INCONTINENT OF URINE X2 ATTENDS CHANGED, BEDDING CHANGED, ASSESSMENT COMPLETE, HEART SOUNDS REGULAR, BT ACTIVE, PULSES STRONG THROUGHOUT. PT DROWSY, FREQUENTLY IN AND OUT OF SLEEP, VSS, BED ALARM ON, CBG 124, NO INSULIN COVERAGE PROVIDED, PT WAS ABLE TO TAKE SEVERAL SIPS OF WATER AND ABLE TO TAKE PO PILL, NO REQUESTS AT THIS TIME, CALL LIGHT WITHIN REACH. BED ALARM ON. IV FLUIDS INFUSING PER EMAR. CENTRAL LINE HEPARIN LOCKED.
--- NOTE | 2018-06-10 22:56 | NUR ---
PT RESTING IN BED, EYES CLOSED, BREATHS EVEN, UNLABORED, NO SIGNS OF AGITATION OR DISTRESS, NO REQUESTS AT THIS TIME, CALL LIGHT WITHIN REACH, IV FLUIDS INFUSING PER EMAR WNL, CALL LIGHT WITHIN REACH, BED ALARM ON.
--- NOTE | 2018-06-11 00:12 | NUR ---
PT RESTING IN BED, EYES CLOSED, BREATHS EVEN, UNLABORED, VSS, NO SIGNS OF DISTRESS OR AGITATION, NO SIGNS OF DISCOMFORT, PT'S IV FLUIDS INFUSING PER EMAR WNL, BED ALARM ON, FALL PRECAUTIONS IN PLACE, CALL LIGHT WITHIN REACH. VISIBLE FROM NURSES STATION.
--- NOTE | 2018-06-11 00:30 | NUR ---
PT NOTED TO BECOME INCREASINGLY AGITATED, YELLING INTO THE HALLS, GRABBING AT IV TUBING AND ATTEMPTING TO ROLL OUT OF BED, PT GIVEN PRN HALDOL PER EMAR FOR AGITATION, PT CONTINUES TO YELL IN THE TOLLIVER NEW ATTENDS PLACED, PT PLACED ON BED ADDISON, PT UNABLE TO PASS A BM, PT'S BEDDING CHANGED, PT CONTINUES TO BE RESING IN BED, IV FLUIDS INFUSING PER EMAR, BED ALARM ON, VSS, FALL PRECAUTIONS IN PLACE.
--- NOTE | 2018-06-11 01:33 | NUR ---
PT INCONTINENT OF URINE, PT'S ATTENDS CHANGED, PT CONTINUES TO YELL INTO HALLS, GROANING, PT DISORIENTED, CONFUSED, UNABLE TO ASSESS ORIENATATION, PT ABLE TO COMMUNICATE IN SHORT PHRASES, FALL PRECAUTIONS IN PLACE, BED ALARM ON, IV FLUIDS INFUSING PER EMAR WNL. REORIENTATION PROVIDED, REASSURANCE PROVIDED. PT REPOSITIONED IN BED FOR COMFORT. VISIBLE FROM NURSES STATION.
--- NOTE | 2018-06-11 02:15 | NUR ---
PT RESTING IN BED, EYES CLOSED, BREATHS EVEN, UNLABORED, NO REQUESTS AT THIS TIME, NO SIGNS OF RESTLESNESS OR AGITATION, IV FLUIDS INFUSING PER EMAR, CALL LIGHT WITHIN REACH, FALL PRECAUTIONS IN PLACE.
--- NOTE | 2018-06-11 03:30 | NUR ---
PT RESTING IN BED, OCCASIONAL GROAN, PT'S ATTENDS CHANGED, BEDDING CHANGED, REPOSITIONED IN BED, PT QUICKLY BACK TO SLEEP, NO REQUESTS AT THIS TIME, PT REMAINS CONFUSED, UNABLE TO ASSESS ORIENTATION, VSS, CALL LIGHT WITHIN REACH, FALL PRECAUTIONS IN PLACE, IV FLUIDS INFUSING PER EMAR WNL.
--- NOTE | 2018-06-11 05:14 | NUR ---
PT AWAKE, OCCASIONALLY GROANING IN BED, PT NOTED TO HAVE LARGE AMOUNT OF WHITE MUCOUS ON PT'S TONGUE, PT SPITTING, ORAL CARE PROVIDED, PT'S MOUTH SUCTIONED AND CLEANED WITH SPONGES, PT TOLERATED WELL, PT TURNED IN BED FOR COMFORT, NO FURTHER REQUESTS AT THIS TIME, ATTENDS DRY, CALL LIGHT WITHIN REACH, FALL PRECAUTIONS IN PLACE, IV FLUIDS INFUSING PER EMAR, VISIBLE FROM NURSES STATION.
--- NOTE | 2018-06-11 06:30 | NUR ---
PT RESTING IN BED, EYES CLOSED, BREATHS EVEN, UNLABORED, NO REQUESTS AT THIS TIME, NO SIGNS OF RESTLESNESS OR AGITATION, PT'S VSS, CALL LIGHT WITHIN REACH, IV FLUIDS INFUSING PER EMAR. FALL PRECAUTIONS IN PLACE.
--- NOTE | 2018-06-11 09:00 | NUR ---
PT DROWSY BUT ANSWERING QUESTIONS APPROPRIATLY. PT IN SITTING POSITION IN THE BED. PT STATES "MY BODY HURTS", 650 MG PO TYLENOL GIVEN. PT DENIES NAUSEA AND SOB. PT STATES "I HAD A BAD DREAM THAT I WAS IN THE HOSPITAL" WHEN TOLD THAT HE WAS IN THE HOSPITAL PT STATES "BUT I DON'T WANT TO BE". PT COOPERATIVE AND POLITE, ABLE TO FOLLOW DIRECTIONS. PT TAKES PILLS WITH ASSISTANCE, DRINKING ENSURE.
--- NOTE | 2018-06-11 09:34 | NUR ---
PT ASSISTED TO A STANDING POSITION WITH USE OF OVERHEAD SLING AND 3 STAFF. PT NOT ABLE TO STAND WITH WEIGHT ON HIS FEET FOR LONGER THAN 10 SECONDS. PT DROWSY AND A HEAVY ASSIST BACK TO BED. PT WANTED TO STAND AT THE BEDSIDE TO TRY TO VOID INTO THE URINAL, NOT ABLE TO NAZANIN PHYSICAL ACTIVITY. PT DOES NOT WANT TO USE THE URINAL WHILE LAYING IN BED.
--- NOTE | 2018-06-11 10:05 | NUR ---
ASSISTED PT TO STAND AT THE BEDSIDE WITH ONE OTHER NURSE. PT IS A HEAVY TWO PERSON ASSIST, NOT ABLE TO STAND FOR LONGER THAN 30 SECONDS. PT INSISTING THAT HE CAN WALK TO THE BATHROOM. PT PUT BACK TO BED BY 2 STAFF. PT APPEARS TO BE VERY FATIGUED BY HIS EFFORTS. TOTAL AMOUNT OF TIME PT PHYSICALY EXHERTED HIMSELF ABOUT 15 MIN.
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
--- NOTE | 2018-06-11 11:30 | NUR ---
IV STARTED IN RT FOREAM BY LILLY LANDA. PT COOPERATIVE, SLIGHTLY DROWSY AND CONFUSED. PT SIGNIFICANT OTHER IS AT THE BEDSIDE.
--- NOTE | 2018-06-11 11:55 | NUR ---
CENTRAL LINE DC'D PER . PT UNCOOPERATIVE AT TIMES. SITE APPEARS NORMAL, SUTURES REMOVED. TIP OF LINE INTACT, NOTHING NOTED TO BE MISSING OR BROKEN. BACITRACIN ON GAUZE USED FOR DRESSING WITH OP SITE OVER THE TOP. MODERATE PRESSURE APPLIED TO SITE AFTER LINE REMOVAL FOR APROXIMATLY 10 MIN. NO SIGNS OF BLEEDING OR HEMATOMA NOTED. PT VITALS WNL, NO ACUTE CHANGES TO MENTAL STATUS.
--- NOTE | 2018-06-11 12:29 | NUR ---
FULL REPORT CALLED TO MARCO A LANDA ON MED/SURG FLOOR.
--- NOTE | 2018-06-11 12:34 | NUR ---
PATIENT REPORT RECEIVED FROM KEVIN LANDA FROM CCU, PATIENT IS COMING OVER FROM CCU TO ROOM 121 AT THIS TIME
--- NOTE | 2018-06-11 12:53 | NUR ---
PATIENT ARRIVED ASLEEP IN HIS BED WITH HIS , VITALS DONE AND ASSESSMENT COMPLETE.
--- NOTE | 2018-06-11 15:47 | NUR ---
PATIENT IS AWAKE AND ORIENTED BUT SPEECH REMAINS SLURRED, SCHEDULED MEDICATION GIVEN AND HE DENIES OTHER NEEDS, AT BEDSIDE
--- NOTE | 2018-06-11 15:52 | NUR ---
PATIENT RESTING IN BED. GIRLFRIEND IN ROOM. ATTEND CHANGED. WARM BLANKETS PROVIDED. ICE WATER GIVEN. CALL LIGHT WITHIN REACH. NO OTHER NEEDS AT THIS TIME
--- NOTE | 2018-06-11 17:12 | NUR ---
PATIENT 3 PERSON TRANSFERRED TO THE COMMODE TO VOID. BE CARE DONE AND PM MEDICATIONS GIVEN WITH A NICOTINE PATCH TO THE BACK. PATIENT HAS BEEN WANTING TO LEAVE TO SMOKE. AT BEDSIDE ASSISTING HIM WITH DINNER.
--- NOTE | 2018-06-11 18:34 | NUR ---
PRESSURE ALARM PLACED ON THIS PATIENT AT THIS TIME, HE REMAINS UP IN THE CHAIR AFTER RN WHEELED THE PATIENT UP AND DOWN THE HALLWAY. PATIENT IS RESTING WITH EYES CLOSED, NO S/S OF DISTRESS OR PAIN CURRENTLY.
--- NOTE | 2018-06-11 19:26 | NUR ---
[facility] CORDE[facility] SAM[facility]. PT RESTING IN BED, RR EVEN AND UNLABORED. PT IN CHAIR, CHAIR PRESSURE ALARM ON. PT APPEARS COMFORTABLE, CALL LIGHT IN REACH. IV FLUIDS INFUSING PER MD ORDERS, SITE WNL.
--- NOTE | 2018-06-11 22:00 | NUR ---
ASSESSMENT COMPLETE. VSS. SCHEDULED MEDICATIONS GIVEN (SEE EMAR). PT A/OX3, SPEECH GARBLED, DIFFICULT TO UNDERSTAND AT TIMES. NICOTINE PATCH PLACED ON DAYSHIFT IN PLACE ON PT'S SHOULDER BLADES. ASSISTED PT WITH REPOSITIONING IN BED. FRESH WATER AT BEDSIDE. NO FURTHER NEEDS, CALL LIGHT IN REACH. IV FLUIDS INFUSING PER MD ORDERS, SITE WNL. BED ALARM ON.
--- NOTE | 2018-06-11 22:45 | NUR ---
PATIENT HOYERED FROM CHAIR TO BSC AND THEN TO BED, 3 PA. DEPENDS CHANGED. FRESH WATER GIVEN. CALL LIGHT IN REACH. NO FURTHER NEEDS AT THIS TIME.
--- NOTE | 2018-06-11 23:16 | NUR ---
FED PT SOME JELLO AND SOME CHOCOLATE GLUCERNA PER PT REQUEST. REPOSITIONED PT UP IN HIS BED. HELPED HIM USE THE URINAL. FRESH WATER GIVEN.
--- NOTE | 2018-06-11 23:26 | NUR ---
WITH THE HELP OF CORDELL RMAIREZ WE REPOSITIONED PT IN BED AGAIN
--- NOTE | 2018-06-11 23:55 | NUR ---
pt reports 9/10 pain in shoulders. prn tylenol given. spilled water on floor cleaned. fresh water with new cup provided. call light in reach.
--- NOTE | 2018-06-12 00:19 | NUR ---
PROVIDED PT'S LIFE PARTNER BERYL WITH UPDATE. ALL QUESTIONS ANSWERED.
--- NOTE | 2018-06-12 02:30 | NUR ---
BS RESULT OF 195, 3 UNITS SS GIVEN. ASSESSMENT COMPLETE. NO NEW CONCERNS. PT A/O TO SELF, IMPATIENT, AND VERY RESTLESS. PT FREQUENTLY USING CALL LIGHT REQUESTING ASSISTANCE WITH REPOSITIONING. IV FLUIDS INFUSING PER MD ORDERS, SITE WNL. CALL LIGHT IN REACH. BED ALARM ON.
--- NOTE | 2018-06-12 02:38 | NUR ---
PER CORDELL RAMIREZ I TOOK PT'S BLOOD PRESSURE AND HEART RATE. INFORMED HER OF RESULTS.
--- NOTE | 2018-06-12 02:42 | NUR ---
DID A BLOOD SUGAR ON PT. GAVE HIM SOME SUGAR FREE PUDDING. I HELPED HIM TO USE THE URINAL. WITH THE HELP OF CORDELL RAMIREZ WE CHANGED HIS ATTEND INCONTINENT WITH URINE. REPOSITIONED PT IN BED. CALL LIGHT IN REACH.
--- NOTE | 2018-06-12 03:55 | NUR ---
WITH THE HELP OF SECURITY AND RN RAFAEL WE HELPED PT TO THE BSC AND BACK TO BED WITH THE GAIT BELT. ATTENDS PUT ON. NEW SHEET AND BLANKET GIVEN DUE TO HIS OTHERS BEING WET. BEDSIDE TABLE AND CALL LIGHT IN REACH. BED ALARM SET.
--- NOTE | 2018-06-12 05:12 | NUR ---
PT IN BED, HOB ELEVATED, UNCOVERED PER CHOICE, EYES CLOSED. BED ALARM ON.
--- NOTE | 2018-06-12 05:45 | NUR ---
PT A/OX3, SPEECH GARBLED AND CAN BE DIFFICULT TO UNDERSTAND AT TIMES. PT HAS SCHEDULED BS CHECKS WITH INSULIN SS. BOWEL TONES ACTIVE, PT DENIED NAUSEA THIS SHIFT. 1/2NS WITH 20 MEQ POTASSIUM @ 125/HR, SITE WNL. PT RESTLESS THROUGHOUT THE NIGHT, VERY IMPATIENT AT TIMES WITH CARE. PT INCONTINENT AT TIMES, NO BM THIS SHIFT. PT IS A HEAVY 3PA OR USE OF KRISTIE.
--- NOTE | 2018-06-12 06:35 | NUR ---
WITH ASSIST OF 3 AND GAIT BELT, PT WAS ASSISTED TO SIDE OF BED, TO STAND AND TO BSC. CUEING TO STAND UP TALL VS LEAN OVER, PT WAS ABLE TO SLOW MOVE FEET AND SIT ON THE BSC WITHOUT INCIDENT. TENDS TO LEAN FORWARD WHILE ON THE BSC, URINATED, THEN PT WAS ABLE TO PUSH SELF TO A STANDING POSITION WITH HELP, MOVE FEET AND SIT ON THE BED, ABLE TO SCOOT SELF TO THE HOB WITH NO HELP, MIMINAL ASSISTANCE GETTING HIS LEFT LEG INTO BED, BUT ONCE IN BED, HE WAS ABLE TO REPOSITION SELF. NOTE HIS BP ELEVATES ON EXERTION, AFTER HE WAS IN BED FOR 10 MIN HIS BP WAS STILL SLIGHTLY ELEVATED TO 162/94. NOTED HIS BP HAS BEEN ELEVATED WITH OTHER VS TODAY. WILL MESSAGE
--- NOTE | 2018-06-12 07:57 | NUR ---
PATIENT REPORT RECEIVED FROM CATHY LANDA, PATIENT 2 PERSON ASSIST UP TO THE CHAIR, HE IS MUCH MORE STEADY ON HIS FEET THIS AM AND WAS ABLE TO WALK INTO THE BATHROOM TO VOID.
--- NOTE | 2018-06-12 08:02 | NUR ---
PATIENT'S BREAKFAST ORDERED
--- NOTE | 2018-06-12 09:34 | NUR ---
PATIENT TX WITH TWO PERSON ASSIST TO THE BED FROM THE CHAIR. HE IS CRYING WITH C/O SHOULDER PAIN, 650MG OF TYLENOL GIVEN PO.
--- NOTE | 2018-06-12 10:01 | NUR ---
PATIENT 2 PERSON ASSIST UP TO THE BATHROOM WITH FWW. PATIENT ATTENDS DRY AND HE WAS AMBULATED BACK TO BED, HOB ELEVATED AND RAILS UP WITH ALARM ON.
--- NOTE | 2018-06-12 11:04 | NUR ---
PATIENT TOOK A SHOWER WITH HOSPITAL DIRECTOR, TOLERATED WELL AND TX TO BED WITH 1 PERSON ASSIST
--- NOTE | 2018-06-12 11:56 | NUR ---
patient's blood glucose checked at this time, 218 currently, patient given 3 units of insulin sq. patient worked with physical therapy and tolerated activity well. no further c/o pain.
--- NOTE | 2018-06-12 13:00 | NUR ---
patient's iv saline locked at this time, doctor pineda in the room to evaluate the patient and patient very aggitated with the doctor, requesting pain medication for c/o shoulder pain, patient threatened to fight the doctor stating he will leave if he is not given pain medications at this time.
--- NOTE | 2018-06-12 13:15 | EKG ---
[facility] [address] [facility] [place] [address] Signed Normal sinus rhythm Normal ECG When compared with ECG of 04-JUN-2018 20:48, Vent. rate has decreased BY 37 BPM Criteria for Anterior infarct are no longer present Confirmed by CHIN DURAN MD ([id number]) on 06/12/2018 1:15:09 PM Electronically Signed By: CHIN DURAN MD 06/12/18 1315 PATIENT NAME: MK MILLER ELAINE Electrocardiogram DATE OF : 51 PHYSICIAN: CHIN DURAN MD REPORT #: [id number] REPORT IS CONFIDENTIAL AND NOT TO BE RELEASED WITHOUT AUTHORIZATION
--- NOTE | 2018-06-12 14:08 | NUR ---
PATIENT SITTING UP IN CHAIR. GIRLFRIEND IN ROOM. VITAL SIGNS AND I&O DONE. CHAIR ALARM ON. CALL LIGHT WITHIN REACH. NO OTHER NEEDS AT THIS TIME
--- NOTE | 2018-06-12 14:34 | NUR ---
PATIENT UP TO THE CHAIR, FAMILY LEFT AFTER COMING TO VISIT FOR AN HOUR, PATIENT DENIES ANY PAIN IN HIS SHOULDERS AFTER TAKING 1 NORCO PO. IN THE ROOM AND CHAIR ALARM ON.
--- NOTE | 2018-06-12 15:29 | NUR ---
PATIENT ASLEEP UP IN THE CHAIR, ALARM REMAINS ON, SCHEDULED MEDICATION GIVEN
--- NOTE | 2018-06-12 16:55 | NUR ---
patient 1 person assisted into bed at this time, blood sugar was 225, 3 units of insulin given sq and new nicotine patch placed on the left arm. patient remains alert and oriented at this time.
--- NOTE | 2018-06-12 18:21 | NUR ---
PATIENT ASSISTED WITH HIS DINNER HE WAS NOT ABLE TO HOLD THE FORK FOR A LONG PERIOD OF TIME, HE STARTED TO COUGH AND NEED TO BLOW HIS NOSE, PATIENT ASSISTED UP TO THE BATHROOM TO VOID, PATIENT BLOWING HIS NOSE, C/O SHOULDER PAIN 01/11 1 NORCO GIVEN PO
--- NOTE | 2018-06-12 18:24 | NUR ---
PATIENT HAS HAD MORE STREANGTH TODAY AND WAS ABLE TO AMBULATE TO THE BATHROOM WITH 1 PERSON ASSIST AND HIS FWW. HE HAS BEEN ABLE TO USE THE BATHROOM APPROPRIATLY INSTEAD OF BEING INCONTENET TODAY. HE IS STILL HAVING TROUBLE GRABING ONTO OBJECTS FOR A LONG PERIOD OF TIME DUE TO SHOULDER PAIN. NORCO WAS ORDERED THIS AFTERNOON BY THE DOCTOR TO HELP RELEIVE SOME OF THE PAIN. HE REMAINS ALERT AND ORIENTED AT THIS TIME BUT IS STILL NEEDING TO HAVE THE ALARM ON HIM A REMINDER TO CALL FOR HELP
--- NOTE | 2018-06-12 18:44 | NUR ---
PATIENT HAS NOT BEEN HAVING ANY FURTHER LOOSE STOOL SINCE ARRIVAL ON THE FLOOR, LAB CALLED AND REQUESTED ADDITIONAL STOOL DUE TO NOT RECEIVING ENOUGH WHEN PATIENT WAS IN THE CCU, DOCTOR MARYLOU CANCELLED THE SAMPLE AT THIS TIME.
--- NOTE | 2018-06-12 19:05 | NUR ---
SHIFT REPORT RECEIVED FROM DAYSHIFT RN AT BEDSIDE. PT AWAKE IN BED WISHING TO GO TO CHAIR. RN YAO WITH PT TO ASSIST IN TRANSFER. BED ALRM ON, ASSISTED PT WITH CALLING LIFE PARTNER KOREY. NO FURTHER NEEDS, CALL LIGHT IN REACH.
--- NOTE | 2018-06-12 19:30 | NUR ---
HELPED PT WITH HIS CELL PHONE TO MAKE A CALL. BED ALARM SET. CALL LIGHT IN REACH.
--- NOTE | 2018-06-12 19:45 | NUR ---
BED ALARM GOING OFF. ASSISTED PT WITH MAKING PHONE CALL AND HELPED PT WITH REPOSITIONING. BED ALARM ON, NO FURTHER NEEDS. CALL LIGHT IN REACH.
--- NOTE | 2018-06-12 20:37 | NUR ---
PT'S CHAIR ALARM SOUNDED. PT WAS TRYING TO GET INTO BED WITH HELP OF FRIEND SEPIDEH. ASSISTED PT TO BED AND BED ALARM IS ON. SEPIDEH PLANS ON STAYING THE NIGHT. CALL LIGHT IS CLOSE.
--- NOTE | 2018-06-12 21:05 | NUR ---
GAVE PT PEN AND PAPER PER REQUEST, HE IS AT THE EDGE OF THE BED AT THIS TIME BEING MONITORED FROM NURSES STATION WITH BED ALARM ON.
--- NOTE | 2018-06-12 21:28 | NUR ---
ASSISTED PT TO SCOOT UP IN BED. ALARM IS ON AND CALL LIGHT IS CLOSE.
--- NOTE | 2018-06-12 21:51 | NUR ---
VITALS I&OS AND BLOOD SUGAR DONE AND CHARTED. BEDSIDE TABLE AND CALL LIGHT IN REACH. FRESH ICE WATER GIVEN.
--- NOTE | 2018-06-12 22:45 | NUR ---
ASSESSMENT COMPLETE. MEDICATIONS GIVEN (SEE EMAR). BS RESULT OF 235, 5 UNITS OF INSULIN SS GIVEN. PT SL, IV SITE WNL. PT'S LIFE PARTNER IN ROOM WITH PT. PT DROWSY, BUT EASILY AROUSABLE. PT DENIES PAIN, NO ADDITIONAL NEEDS. CALL LIGHT IN REACH, BED ALARM ON.
--- NOTE | 2018-06-12 22:45 | NUR ---
ASSISTED PT BACK TO BED WITH 2PA. PT DENIES FURTHER NEEDS. BED ALARM IS ON AND CALL LIGHT IS CLOSE.
--- NOTE | 2018-06-12 22:49 | NUR ---
WITH THE HELP OF CORDELL HALL WE GOT PT FROM THE CHAIR BACK TO BED. BED ALARM SET. GOT HIS GUEST A PILLOW , SHEETS AND TWO BLANKETS. THEY NEED NOTHING MORE AT THIS TIME.
--- NOTE | 2018-06-12 23:10 | NUR ---
PT REQUESTED PAIN MEDS FOR 11/10 PAIN. ADMINISTERED NORCO, PT DENIES FURTHER NEEDS AT THIS TIME. CALL LIGHT IS CLOSE AND BED ALARM IS ON.
--- NOTE | 2018-06-13 01:34 | NUR ---
PER PT'S GUEST IN HIS ROOM I GAVE HER SOME CHOCOLATE PUDDING AND TIFFANIE CRACKERS. SHE NEEDS NOTHING MORE AT THIS TIME.
--- NOTE | 2018-06-13 02:45 | NUR ---
ASSESSMENT COMPLETE. BS RESULT 85. PT DENIES SHAKINESS, DIZZINESS. DR HICKMAN AT NURSES STATION AND AWARE. THIS RN TOLD BY DR MARYLOU CHANG TO GIVE PT CHOCOLATE ENSURE DRINK TO PT TO HELP AVOID HYPOGLYCEMIC EPISODE. DR MARYLOU CHANG WITH CARB AND SUGAR COUNT FOR CHOCLATE ENSURE. MANAGER SALES RAFAEL ALSO AWARE. NO FURTHER ORDERS. PT DENIES ADDITIONAL NEEDS. BED ALARM ON AND CALL LIGHT IN REACH.
--- NOTE | 2018-06-13 03:00 | NUR ---
WITH THE HELP OF CORDELL RAMIREZ WE HELPED PT TO THE BATHROOM AND BACK TO BED WITH HIS FWW. BED ALARM ON. FRESH ICE WATER GIVEN. BEDSIDE TABLE AND CALL LIGHT IN REACH.
--- NOTE | 2018-06-13 03:47 | NUR ---
PT IN CHAIR, ALARM ON. PT TALKING TO . DECAF COFFEE GIVEN PER PT REQUEST. HOT CHOCOLATE PROVIDED FOR . NO FURTHER NEEDS, CALL LIGHT IN REACH.
--- NOTE | 2018-06-13 04:50 | NUR ---
HELPED PT TO THE BATHROOM AND BACK TO BED WITH HIS FWW. BEDSIDE TABLE AND CALL LIGHT IN REACH. HE NEEDS NOTHING MORE AT THIS TIME.
--- NOTE | 2018-06-13 05:00 | NUR ---
pt reports 10/10 pain in shoulders. 1 norco administered per pt request. no further needs, call light in reach. life partner in room.
--- NOTE | 2018-06-13 05:19 | NUR ---
BED ALARM GOING OFF. ASSISTED PT WITH TRANSFERING WITH FWW TO CHAIR. CHAIR ALARM ON. SODA PROVIDED TO PT'S PARTNER PER REQUEST. CALL LIGHT IN REACH.
--- NOTE | 2018-06-13 05:52 | NUR ---
VITALS AND I&OS DONE AND CHARTED. BEDSIDE TABLE AND CALL LIGHT IN REACH. PT NEEDS NOTHING AT THIS TIME. BED ALARM SET.
--- NOTE | 2018-06-13 08:22 | NUR ---
PT HAD A GOOD NIGHT. PT HAS SCHEDULED ACCUCHECKS WITH INSULIN SS. VOIDING QS. 1-2PA W/ FWW FOR AMBULATION. PT'S PARTNER STAYED THE NIGHT WITH PT. PAIN WELL CONTROLLED WITH PRN NORCO. VSS, PT ON RA. AT TIMES RESTLESS, BED/CHAIR ALARM ON FOR SAFETY.
--- NOTE | 2018-06-13 08:45 | NUR ---
PT SITTING UP AT EDGE OF BED. SIGNIFICANT OTHER SEPIDEH AT BEDSIDE. PT ALERT AND ORIENTED THIS AM. SBA WITH WALKER TO RESTROOM. DENIES PAIN OR OTHER CONCERNS AT THIS TIME. CALL LIGHT WITHIN REACH. BED ALARM ON.
--- NOTE | 2018-06-13 09:50 | NUR ---
PT UP TO RESTROOM WITH 1 PA FWW. PT FLUSHED TOILET UNMEASURED.
--- NOTE | 2018-06-13 11:57 | NUR ---
PT YANICK KNOX WITH PThao CARRASCO WITH FWW. NAZANIN WELL.
--- NOTE | 2018-06-13 13:04 | NUR ---
PT SITTING UP AT EDGE OF BED EATING LUNCH INDEPENDENTLY. DENIES NEEDS OR CONCERNS. CALL LIGHT WITHIN REACH. BED ALARM ON. PT VISIBLE FROM NURSES STATION.
--- NOTE | 2018-06-13 13:20 | NUR ---
PT REQUESTED TO GET UP TO GO FOR A WALK. THIS RN WAS PRESENT WITH PT FOR WALK IN HALLWAY. SBA WITH WALKER, PT STEADY ON FEET. AMB BACK TO BED. CALL LIGHT WITHIN REACH, SEPIDEH AT BEDSIDE.
--- NOTE | 2018-06-13 15:40 | NUR ---
PT UP TO AMB FOR ANOTHER WALK. 1 PA WITH WALKER, NAZANIN WELL. AMB BACK TO BED. CALL LIGHT WITHIN REACH.
--- NOTE | 2018-06-13 18:11 | NUR ---
PT RESTING IN BED AFTER EATING DINNER. WATCHING TV. DENIES NEEDS OR CONCERNS AT THIS TIME. PT ALERT AND ORIENTED THIS SHIFT, APPROPRIATE. CALL LIGHT WITHIN REACH.
--- NOTE | 2018-06-13 18:57 | NUR ---
RECIEVED CHANGE OF SHIFT REPORT FROM CORDELL BELLO. PATIENT RESTING IN BED WITH EYES CLOSED, RESPIRATORY RATE IS EVEN AND UNLABORED. FAMILY AT BEDSIDE. WHITE BOARD UPDATED. CALL LIGHT WITHIN REACH.
--- NOTE | 2018-06-13 20:54 | NUR ---
VITALS AND I&OS DONE AND CHARTED. BEDSIDE TABLE AND CALL LIGHT IN REACH. CLEANED UP ROOM.
--- NOTE | 2018-06-13 21:15 | NUR ---
ASSESSMENT COMPLETE. SCHEDULED MEDICATION ADMINISTERED PER JUL ORDER. INSULIN COVERAGE ADMINISTERED PER JUL ORDER. PATIENT REPORTS "5/10" PAIN IN BILATERAL SHOULDERS, PATIENT REPORTS PAIN IS "GETTING BETTER". ACTIVE BOWEL TONES. DIMINISHED LUNG SOUNDS NOTED. PATIENT REPORTS PAIN/TENDERNESS IN ABDOMEN, PATIENT REPORTS "STOMACH HURTS WHEN I GET INSULIN AND DON'T EAT ANYTHING", SUGAR FREE PUDDING PROVIDED. VISITOR AT BEDSIDE. IV PATENT AND WNL. PATIENT DENIES PAIN, SOB, OR DIFFICULTY BREATHING. CALL LIGHT WITHIN REACH. NO MORE NEEDS AT THIS TIME.
--- NOTE | 2018-06-14 00:10 | NUR ---
ROUNDED ON PATIENT RESTING IN BED WITH EYES CLOSED, RESPIRATORY RATE IS EVEN AND UNLABORED, NO SIGNS OF TENSING OR GRIMACING. CALL LIGHT WITHIN REACH.
--- NOTE | 2018-06-14 00:22 | NUR ---
HELPED PT FROM THE BATHROOM BACK TO BED WITH HIS FWW. BEDSIDE TABLE AND CALL LIGHT IN REACH. PT'S GUEST IS IN THE ROOM WITH HIM WHEN I LEFT. THEY NEED NOTHING AT THIS TIME.
--- NOTE | 2018-06-14 02:19 | NUR ---
ROUNDED ON PATIENT TO ASSESS BLOOD GLUCOSE PER ORDER. PATIENT BLOOD GLUCOSE 56 mg/dL. RUPALI RN ADMINISTERED DEXTROSE PER JUL ORDER AND THIS RN PROVIDED PATIENT WITH ORANGE JUICE. BLOOD GLUCOSE REASSESSED 30 MINUTES LATER TO BE 123 mg/dL. PATIENT DENIES HAVING ANY S/S OF HYPOGLYCEMIA. MESSAGE SENT TO DR. HICKMAN ABOUT HYPOGYCEMIC EPISODE. THIS RN SBA PATIENT TO RESTROOM WITH FWW. PATIENT DENIES BEING LIGHTHEADED/DIZZY WITH AMBULATION. WHEN ASKED ABOUT PAIN PATIENT STATES, "I'M DOING PRETTY GOOD RIGHT NOW". CALL LIGHT WITHIN REACH. NO MORE NEEDS AT THIS TIME.
--- NOTE | 2018-06-14 02:58 | NUR ---
ASSESSMENT COMPLETE. PATIENT DENIES PAIN, SOB, OR DIFFICULTY BREATHING. VISITOR AT BEDSIDE. HEAD OF THE BED ELEVATED GREATER THAN 30 DEGREES. WHITE BOARD UPDATED. PATIENT DENIES NUMBNESS AND TINGLING IN EXTREMITIES AT THIS TIME. PATIENT DISORIENTED TO DATE, REORIENT PRN. CALL LIGHT WITHIN REACH. NO MORE NEEDS AT THIS TIME.
--- NOTE | 2018-06-14 04:57 | NUR ---
ROUNDED ON PATIENT RESTING IN BED WITH EYES CLOSED, RESPIRATORY RATE IS EVEN AND UNLABORED. CALL LIGHT WITHIN REACH. VISITOR AT BEDSIDE.
--- NOTE | 2018-06-14 05:14 | NUR ---
ADA DIET. PT/OT. SBA WITH FWW. ACCU CHECKS WITH SS. SALINE LOCKED. ASPIRATION PRECAUTIONS. HYPOGLYCEMIC EVENT THIS SHIFT, DEXTROSE ADMINISTERED PER JUL ORDER AND ORANGE JUICE PROVIDED, BLOOD GLUCOSE REASSESSED AND WNL. PATIENT COMPLAINED OF PAIN EARLIER IN SHIFT, NO PRN PAIN MEDICATION REQUIRED. VISITORS AT BEDSIDE THROUGHTOUT SHIFT. ROOM AIR. BED ALARM FOR SAFETY.
--- NOTE | 2018-06-14 05:20 | NUR ---
ROUNDED ON PATIENT AMBULATING TO RESTROOM, THIS RN SBA PATIENT TO RESTROOM WITH FWW, PATIENT SAFELY BACK TO BED. PROVIDED EDUCATION TO PATIENT TO USE CALL LIGHT TO ENSURE PATIENT SAFETY, PATIENT EXPRESSED UNDERSTANDING. BED ALARM ON FOR SAFETY. CALL LIGHT WITH REACH. VISITOR AT BEDSIDE. NO MORE NEEDS AT THIS TIME.
--- NOTE | 2018-06-14 06:40 | NUR ---
rounded on patient for report of "7/10" pain in left shoulder, prn pain medication provided. bed alarm on for safety. call light within reach. no more needs at this time.
--- NOTE | 2018-06-14 08:00 | NUR ---
PT SITTING UP AT EDGE OF BED EATING BREAKFAST. ALERT AND ORIENTED. RATES SHOULDER PAIN 3/10, REPORTS NORCO HELPED. PT DENIES NAUSEA OR OTHER CONCERNS. SIGNIFICANT OTHER SEPIDEH AT BEDSIDE. ASSESSMENT COMPLETED. NICOTINE PATCH APPLIED EARLY PER PT OLD ONE FELL OFF EARLY YESTERDAY DURING SHOWER. PT APPROPRIATE THIS AM. CALL LIGHT WITHIN REACH.
--- NOTE | 2018-06-14 08:50 | NUR ---
PT YAMINI KNOX WITH FWW AND SBA FROM [facility]. PT NAZANIN DENG.
--- NOTE | 2018-06-14 11:40 | NUR ---
PT YANICK KNOX WITH P.T., WORKING ON BIKE IN P.T. ROOM, NAZANIN WELL.
[2018-06-14] MEDS ORDERED: NICOTINE PATCH1 EAC1 TD (13:03)
[2018-06-14] MEDS ORDERED: QUETIAPINE FUMA25 MG PO ×2 (13:04)
[2018-06-14] MEDS ORDERED: GABAPENTIN600 MG PO (13:04)
--- NOTE | 2018-06-14 13:04 | NUR ---
PT SITTING AT EDGE OF BED VISITING WITH Yandel BUNN. PT ALERT AND ORIENTED. DENIES NEEDS OR CONCERNS AT THIS TIME. CALL LIGHT WITHIN REACH.
[2018-06-14] MEDS ORDERED: METFORMIN HCL500 MG PO (13:06)
--- NOTE | 2018-06-14 13:45 | NUR ---
PT SITTING ON SIDE OF BED, SIG. Momo BUNN AT BS. PLEASANT VISIT, COMPLIMENTED ALL THE STAFF, AND SEEMED TO REALLY ENJOY THE MEALS. DISCOVERED PT IS A AND THANKED HIM FOR HIS SERVICE. PT SEEMED TO WANT TO TALK, LET HIM AIR-EXTENDED A BLESSING. WILL FOLLOW NEEDED
--- NOTE | 2018-06-14 13:58 | NUR ---
PATIENT READY TO GO HOME. GIRLFRIEND, SEPIDEH, IN ROOM WELL. PATIENT STATES THE REASON WHY HE IS IN HERE IS THAT HE COULDN'T AFFORD TEST STRIPS, PLUS HE WAS SICK FOR 9 DAYS AND FOR 3 OF THOSE DAYS ALL HE WAS CONSUMING WAS [employer] ROOTBEER AND JUICE. NOT AFFORDING TEST STRIPS IS RECENT SINCE HE TURNED 63 AND WENT ON MEDICARE. HE HAS BEEN LIVING WITH DIABETES SINCE 2008. HE HAS SOME DIFFERENT THEORIES ON HOW TO TREAT LOW BLOOD SUGAR. 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 HE BAKES OR SAUTES MEATS. LIKES SOFT VEGETABLES. HAS SEEN THE PLATE METHOD PICTURE BEFORE BUT DOESN'T ALWAYS FOLLOW IT. I GAVE HIM A PLAN YOUR MEALS BROCHURE AND A LOW CARBOHYDRATE SNACK LIST. THE 3 MAIN TOPICS OF DISCUSSION WERE: 1) HOW TO TREAT A LOW BLOOD SUGAR, 2) NORMAL RANGE FOR A FASTING BLOOD SUGAR WHICH HE SAID 70-120, AND 3) AVOID SKIPPING MEALS, AND KNOWING WHERE ALL THE CARBOHYDRATES ARE COMING FROM IN THE DIET, NOT JUST SUGARS, THOUGH THOSE SHOULD BE KEPT TO A MINIMUM. I DID EMPHASIZE FIBER IS REALLY BENEFICIAL FOR DIABETES AND EXPLAINED SOME FOODS THAT ARE GOOD SOURCES OF FIBER. GOOD DISCUSSION. THEY DIDN'T HAVE MANY QUESTIONS THEY ARE READY TO GO. MY CARD PROVIDED IN CASE PATIENT NEEDS MORE HELP WITH MEAL PLANNING.
[2018-06-14] MEDS ORDERED: LORCET HD 10-31 EACH PO (14:18)
== END 2018-06-14 14:35 | disposition home or self-care (01) | DRG 637 ==
LOC: ED 18:38 → CCU 22:29 → MS 06-11 12:45
PROVIDERS: ADMIT Student in an Organized Health Care Education/Training Program
PROC: 02HV33Z Insertion of Infusion Device into Superior Vena Cava, Percutaneous Approach (ICD-10-PCS; principal; 2018-06-05)
PROC: 3E033XZ Introduction of Vasopressor into Peripheral Vein, Percutaneous Approach (ICD-10-PCS; 2018-06-05)
DX: E11.10 Type 2 diabetes mellitus with ketoacidosis without coma (principal); G93.41 Metabolic encephalopathy; R65.10 Systemic inflammatory response syndrome (SIRS) of non-infectious origin without acute organ dysfunction; F10.231 Alcohol dependence with withdrawal delirium; N17.9 Acute kidney failure, unspecified; E87.0 Hyperosmolality and hypernatremia; J44.9 Chronic obstructive pulmonary disease, unspecified; F17.200 Nicotine dependence, unspecified, uncomplicated; M25.519 Pain in unspecified shoulder; R26.81 Unsteadiness on feet; R94.31 Abnormal electrocardiogram [ECG] [EKG]; I95.2 Hypotension due to drugs; E87.5 Hyperkalemia; T42.6X5A Adverse effect of other antiepileptic and sedative-hypnotic drugs, initial encounter; Y92.239 Unspecified place in hospital as the place of occurrence of the external cause; Z88.8 Allergy status to other drugs, medicaments and biological substances; Z79.4 Long term (current) use of insulin; Z91.14 Patient's other noncompliance with medication regimen; Z79.899 Other long term (current) drug therapy; Z66 Do not resuscitate
CPT/HCPCS: 36415; 51702; 70450; 71045; 80048; 80053; 80069; 80076; 81001; 82010; 82140; 82607; 82746; 82800; 82803; 82947; 82977; 83036; 83605; 83615; 83690; 83735; 84100; 84425; 84443; 85025; 85610; 85651; 85730; 86780; 87040; 87205; 87449; 87493; 87502; 87899; 93005; 93010; 94640; 96361; 96374; 96375; 97110; 97116; 97163; 97165; 97530; 99291; 99292; 99406; C9113; G0480; J0610; J0692; J1630; J1650; J1815; J2060; J2405; J2550; J2560; J3360; J3370; J3411; J3475; J3480; J7030; J7040; J7060; J7070; J7120

== ENCOUNTER 2018-12-20 20:16 | Emergency (ER) | payer MEDICARE, OTHER ==
[~2018-12-20] VITALS: Ht 185.4 cm; Wt 111.1 kg
[~2018-12-20 20:16] MED LIST changes: +CLOPIDOGREL75 MG PO; +COLACE CLEAR50 MG PO; +GABAPENTIN600 MG PO; +GLIPIZIDE10 MG PO; +LISINOPRIL10 MG PO; +LORCET HD 10-31 EACH PO; +METFORMIN HCL1000 MG PO; +NICOTINE PATCH1 EAC1 TD; +ONDANSETRON ODT8 MG PO; +PERCOCET 7.5-31 EACH PO; +QUETIAPINE FUMA25 MG PO; +SULINDAC200 MG PO; +VENTOLIN HFA18 GM INH
--- OUTSIDE RECORDS SUMMARY | 2018-12-20 20:18 | XMS ---
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 Taiwo VISIT COUNT (12 MO.) 4 [facility] TOTAL 4 NOTE: Visits indicate total known visits. ED/UCC VISIT TRACKING (12 MO.) 12/20/2018 20:17 [facility] [place] TYPE: Emergency COMPLAINT: - BACK/HIP PAIN 12/04/2018 02:47 [facility] [place] TYPE: Emergency COMPLAINT: - BACK PAIN DIAGNOSES: - Low back pain - control clerk head (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 - Other intervertebral disc displacement, lumbar region - Other heel reducer (current) drug therapy - Contusion of lower back and pelvis, initial encounter - Type 2 diabetes mellitus without complications - Fall on same level, unspecified, initial encounter 06/04/2018 18:38 [facility] [place] TYPE: Emergency COMPLAINT: - ALTERED LOC 01/07/2018 10:14 [facility] [place] TYPE: Emergency COMPLAINT: - FALL/LIP LACERATION DIAGNOSES: - Other heel reducer (current) drug therapy - control clerk head (current) use of insulin - Laceration without foreign body of other part of head, initial encounter - Unspecified fall, initial encounter - Personal history of nicotine dependence - Type 2 diabetes mellitus without complications - Striking against or struck by other objects, initial encounter INPATIENT VISIT TRACKING (12 MO.) 06/04/2018 22:29 [facility] [place] TYPE: Medical Surgical COMPLAINT: - DKA DIAGNOSES: - Patient's other noncompliance with medication regimen - Alcohol dependence with withdrawal delirium - Hyperkalemia - Alcohol dependence with withdrawal delirium - penitentiary (current) use of insulin - Pain in unspecified shoulder - Acute kidney failure, unspecified - Unspecified place in hospital as the place of occurrence of the external cause - Other fci (current) drug therapy - Hyperkalemia - Abnormal electrocardiogram [ECG] [EKG] - Adverse effect of other antiepileptic and sedative-hypnotic drugs, initial encounter - Metabolic encephalopathy - Metabolic encephalopathy - Pain in unspecified shoulder - Chronic obstructive pulmonary disease, unspecified - Systemic inflammatory response syndrome (SIRS) of non-infectious origin without acute organ dysfunction - Hyperosmolality and hypernatremia - Chronic obstructive pulmonary disease, unspecified - Unsteadiness on feet - Nicotine dependence, unspecified, uncomplicated - Other fci (current) drug therapy - Systemic inflammatory response syndrome (SIRS) of non-infectious origin without acute organ dysfunction - Abnormal electrocardiogram [ECG] [EKG] - Allergy status to other drugs, medicaments and biological substances status - Patient's other noncompliance with medication regimen - penitentiary (current) use of insulin - Do not resuscitate - Unspecified place in hospital as the place of occurrence of the external cause - Acute kidney failure, unspecified - Hypotension due to drugs - Hyperosmolality and hypernatremia - Nicotine dependence, unspecified, uncomplicated - Allergy status to other drugs, medicaments and biological substances status - Adverse effect of other antiepileptic and sedative-hypnotic drugs, initial encounter - Unsteadiness on feet - Do not resuscitate - Type 2 diabetes mellitus with ketoacidosis without coma - Hypotension due to drugs [email or web address]
[2018-12-20] MEDS ORDERED: TRAMADOL HCL50 MG PO (22:28)
== END 2018-12-20 22:36 | disposition home or self-care (01) ==
LOC: ED 20:16
DX: S30.0XXA Contusion of lower back and pelvis, initial encounter (principal); E11.9 Type 2 diabetes mellitus without complications; F17.200 Nicotine dependence, unspecified, uncomplicated; Z79.84 Long term (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; Z79.899 Other long term (current) drug therapy; W01.198A Fall on same level from slipping, tripping and stumbling with subsequent striking against other object, initial encounter
CPT/HCPCS: 74177; 80053; 85025; 99284-25; J1170; J2405; Q9967

== ENCOUNTER 2018-12-26 18:40 | Emergency (ER) | payer MEDICARE, OTHER ==
[~2018-12-26] VITALS: Ht 185.4 cm; Wt 111.1 kg
[~2018-12-26 18:40] MED LIST changes: +TRAMADOL HCL50 MG PO
--- OUTSIDE RECORDS SUMMARY | 2018-12-26 18:42 | XMS ---
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 Current PHONE: Unknown Deysi has no Care Guidelines for this patient. E.D. VISIT COUNT (12 MO.) 5 [facility] TOTAL 5 NOTE: Visits indicate total known visits. ED/UCC VISIT TRACKING (12 MO.) 12/26/2018 18:41 [facility] [place] TYPE: Emergency COMPLAINT: - DIABETIC ISSUE 12/20/2018 20:17 [facility] [place] TYPE: Emergency COMPLAINT: - BACK/HIP PAIN DIAGNOSES: - Fall on same level from slipping, tripping and stumbling with subsequent striking against other object, initial encounter - Contusion of lower back and pelvis, initial encounter - rn long term care (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 - Other fci (current) drug therapy - Type 2 diabetes mellitus without complications - Nicotine dependence, unspecified, uncomplicated - Low back pain 12/04/2018 02:47 [facility] [place] [place] TYPE: Emergency COMPLAINT: - BACK PAIN DIAGNOSES: - Low back pain - skilled nursing (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 - Other intervertebral disc displacement, lumbar region - Other fci (current) drug therapy - Contusion of lower back and pelvis, initial encounter - Type 2 diabetes mellitus without complications - Fall on same level, unspecified, initial encounter 06/04/2018 18:38 [facility] [place] [place] TYPE: Emergency COMPLAINT: - ALTERED LOC 01/07/2018 10:14 [facility] [place] [place] TYPE: Emergency COMPLAINT: - FALL/LIP LACERATION DIAGNOSES: - Other fci (current) drug therapy - skilled nursing (current) use of insulin - Laceration without foreign body of other part of head, initial encounter - Unspecified fall, initial encounter - Personal history of nicotine dependence - Type 2 diabetes mellitus without complications - Striking against or struck by other objects, initial encounter INPATIENT VISIT TRACKING (12 MO.) 06/04/2018 22:[address] [facility] [place] TYPE: Medical Surgical COMPLAINT: - DKA DIAGNOSES: - Patient's other noncompliance with medication regimen - Alcohol dependence with withdrawal delirium - Hyperkalemia - Alcohol dependence with withdrawal delirium - rn long term care (current) use of insulin - Pain in [...] - Nicotine dependence, unspecified, uncomplicated - Other long chain beamer (current) drug therapy - Systemic inflammatory response syndrome (SIRS) of non-infectious origin without acute organ dysfunction - Abnormal electrocardiogram [ECG] [EKG] - Allergy status to other drugs, medicaments and biological substances status - Patient's other noncompliance with medication regimen - skilled nursing (current) use of insulin - Do not [...] without coma - Hypotension due to drugs [email or web address]
== END 2018-12-26 21:51 | disposition home or self-care (01) ==
LOC: ED 18:40
DX: K52.9 Noninfective gastroenteritis and colitis, unspecified (principal); E11.9 Type 2 diabetes mellitus without complications; F17.200 Nicotine dependence, unspecified, uncomplicated; Z90.49 Acquired absence of other specified parts of digestive tract; Z79.899 Other long term (current) drug therapy; Z79.84 Long term (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
CPT/HCPCS: 80053; 81001; 85025; 96360; 99284-25; J7030

== ENCOUNTER 2019-01-16 18:45 | Emergency (ER) | payer MEDICARE, OTHER ==
[~2019-01-16] VITALS: Ht 185.4 cm; Wt 111.1 kg
--- OUTSIDE RECORDS SUMMARY | 2019-01-16 18:48 | XMS ---
PreManage Notification: MK MILLER Security Mass Spectrometry Manager Events No recent Security Events currently on file CRITERIA MET - Group Notification - [facility] - Has Care Guidelines - PDMP - [facility] - 2 Visits in 30 Days CARE PROVIDERS SIDNEY KELLY Family Medicine 12/21/2018-Current PHONE: [phone] RENATA PEPE Emergency Medicine 12/21/2018-Current MD BEYER PHONE: Unknown Turner Jenkins Current PHONE: Unknown Deysi has no Care Guidelines for this patient. Care History Medical/Surgical 12/27/2018 [facility] Care Recommendation: This patient has had 5 or more Emergency Department visits in the last 12 months.\T\nbsp; Patient requires education on the scope and purpose of the ED as an acute care provider not a Primary Care Provider and should not be utilized for chronic conditions.\T\nbsp; If patient returns to ED please contact Community Health Worker Hallie at [phone]. These are guidelines and the provider should exercise clinical judgment when providing care. E.D. VISIT COUNT (12 MO.) 5 MAGALY Jar[place] TOTAL 5 NOTE: Visits indicate total known visits. 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 - Noninfective gastroenteritis and colitis, unspecified - Type 2 diabetes mellitus without complications - Acquired absence of other specified parts of digestive tract - Other snf (current) drug therapy - Nicotine dependence, unspecified, uncomplicated 12/20/2018 20:17 [place] [place] TYPE: Emergency COMPLAINT: - BACK/HIP PAIN DIAGNOSES: - Fall on same level from slipping, tripping and stumbling with subsequent striking against other object, initial encounter - Contusion of lower back and pelvis, initial encounter - retirement (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 - Other continuous churn buttermaker (current) drug therapy - Type 2 diabetes mellitus without complications - Nicotine dependence, unspecified, uncomplicated - Low back pain 12/04/2018 02:47 [facility] [place] TYPE: Emergency COMPLAINT: - BACK PAIN DIAGNOSES: - Low back pain - retirement (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 - Other intervertebral disc displacement, lumbar region - Other snf (current) drug therapy - Contusion of lower back and pelvis, initial encounter - Type 2 diabetes mellitus without complications - Fall on same level, unspecified, initial encounter 06/04/2018 18:38 [facility] [place] TYPE: Emergency COMPLAINT: - ALTERED LOC INPATIENT VISIT TRACKING (12 MO.) 06/04/2018 22:29 [facility] [place] TYPE: Medical Surgical COMPLAINT: - DKA DIAGNOSES: - Patient's other noncompliance with medication regimen - Alcohol dependence with withdrawal delirium - Hyperkalemia - Alcohol dependence with withdrawal delirium - retirement (current) use of insulin - Pain in unspecified shoulder - Acute kidney failure, unspecified - Unspecified place in hospital as the place of occurrence of the external cause - Other continuous churn buttermaker (current) drug therapy - Hyperkalemia - Abnormal [...] - Nicotine dependence, unspecified, uncomplicated - Other snf (current) drug therapy - Systemic inflammatory response syndrome (SIRS) of non-infectious origin without acute organ dysfunction - Abnormal electrocardiogram [ECG] [EKG] - Allergy status to other drugs, medicaments and biological substances status - Patient's other noncompliance with medication regimen - retirement (current) use of insulin - Do not [...] without coma - Hypotension due to drugs [email or web address]
[2019-01-16] MEDS ORDERED: NORCO 5-325 TA1 EACH PO (21:18)
== END 2019-01-16 21:46 | disposition home or self-care (01) ==
LOC: ED 18:45
DX: S30.0XXA Contusion of lower back and pelvis, initial encounter (principal); E11.9 Type 2 diabetes mellitus without complications; F41.9 Anxiety disorder, unspecified; F17.200 Nicotine dependence, unspecified, uncomplicated; Z79.84 Long term (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; Z79.899 Other long term (current) drug therapy; W18.30XA Fall on same level, unspecified, initial encounter
CPT/HCPCS: 96372; 99283; J1885

== ENCOUNTER 2019-04-24 17:52 | Emergency (ER) | payer MEDICARE, OTHER ==
[~2019-04-24] VITALS: Ht 185.4 cm; Wt 113.4 kg
--- OUTSIDE RECORDS SUMMARY | 2019-04-24 17:56 | XMS ---
PreManage Notification: MK MILLER Security Ripsaw Matcher Events No recent Security Events currently on file CRITERIA MET - [facility] - Has Care Guidelines - PDMP CARE PROVIDERS SIDNEY KELLY Family Medicine 12/21/2018-Current PHONE: [phone] RENATA PEPE Emergency Medicine 12/21/2018-Current (VASILE BEYER PHONE: Unknown Turner Jenkins [facility] Current PHONE: Unknown Deysi has no Care Guidelines for this patient. Care History Medical/Surgical 12/27/2018 [facility] Care Recommendation: This patient has had 5 or more Emergency Department visits in the last 12 months.\T\nbsp; Patient requires education on the scope and purpose of the ED as an acute care provider not a Primary Care Provider and should not be utilized for chronic conditions.\T\nbsp; If patient returns to ED please contact Community Health Worker Hallie at [phone]. These are guidelines and the provider should exercise clinical judgment when providing care. E.D. VISIT COUNT (12 MO.) 6 MAGALY Jaramillo TOTAL 6 NOTE: Visits indicate total known visits. 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 12/26/2018 18:41 [facility] [place] TYPE: Emergency COMPLAINT: - DIABETIC ISSUE DIAGNOSES: - Diarrhea, unspecified - 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 service (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 - Noninfective gastroenteritis and colitis, unspecified - 1 Type 2 diabetes mellitus without complications - Acquired absence of other specified parts of digestive tract - Other computer terminal operator (current) drug therapy - Nicotine dependence, unspecified, uncomplicated 12/20/2018 20:17 [facility] [place] TYPE: Emergency COMPLAINT: - BACK/HIP PAIN DIAGNOSES: - Fall same lev from slip/trip w strike agn ot object, init - Contusion of lower back and pelvis, initial encounter - 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 service (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 - Other computer terminal operator (current) drug therapy - 1 Type 2 diabetes mellitus without complications - Nicotine dependence, unspecified, uncomplicated - Low back pain 12/04/2018 02:47 [facility] [place] TYPE: Emergency COMPLAINT: - BACK PAIN DIAGNOSES: - Low back pain - 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 service (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 - Other intervertebral disc displacement, lumbar region - Other senior living (current) drug therapy - Contusion of lower back and pelvis, initial encounter - 1 Type 2 diabetes mellitus without complications - Fall on same level, unspecified, initial encounter 06/04/2018 18:38 [facility] [place] TYPE: Emergency COMPLAINT: - ALTERED LOC INPATIENT VISIT TRACKING (12 MO.) 06/04/2018 22:29 [facility] [place] TYPE: Medical Surgical COMPLAINT: - DKA DIAGNOSES: - Patient's other noncompliance with medication regimen - Alcohol dependence with withdrawal delirium - Hyperkalemia - Alcohol dependence with withdrawal delirium - jail (current) use of insulin - Pain in unspecified shoulder - Acute kidney failure, unspecified - Unsp place in hospital as place - Other senior living (current) drug therapy - Hyperkalemia - Abnormal electrocardiogram [ECG] [EKG] - Adverse effect of antiepileptic and sed-hypntc drugs, init - Metabolic encephalopathy - Metabolic encephalopathy - Pain in unspecified shoulder - Chronic obstructive pulmonary disease, unspecified - SIRS of non-infectious origin w/o acute organ dysfunction - Hyperosmolality and hypernatremia - Chronic obstructive pulmonary disease, unspecified - Unsteadiness on feet - Nicotine dependence, unspecified, uncomplicated - Other computer terminal operator (current) drug therapy - SIRS of non-infectious origin w/o acute organ dysfunction - Abnormal electrocardiogram [ECG] [EKG] - Allergy status to oth drug/meds/biol subst status - Patient's other noncompliance with medication regimen - 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 service (current) use of insulin - Do not resuscitate - Unsp place in hospital as place - Acute kidney failure, unspecified - Hypotension due to drugs - Hyperosmolality and hypernatremia - Nicotine dependence, unspecified, uncomplicated - Allergy status to oth drug/meds/biol subst status - Adverse effect of antiepileptic and sed-hypntc drugs, init - Unsteadiness on feet - Do not resuscitate - 1 Type 2 diabetes mellitus with ketoacidosis without coma - Hypotension due to drugs [email or web address]
[2019-04-24] MEDS ORDERED: DICLOFENAC SODI75 MG PO (18:07)
[2019-04-24] MEDS ORDERED: BACLOFEN10 MG PO (18:07)
[2019-04-24] MEDS ORDERED: CLOPIDOGREL75 MG PO (18:07)
== END 2019-04-24 21:17 | disposition home or self-care (01) ==
LOC: ED 17:52
DX: J00 Acute nasopharyngitis [common cold] (principal); E11.9 Type 2 diabetes mellitus without complications; F41.9 Anxiety disorder, unspecified; F17.200 Nicotine dependence, unspecified, uncomplicated; J44.9 Chronic obstructive pulmonary disease, unspecified; Z79.899 Other long term (current) drug therapy; Z79.84 Long term (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
CPT/HCPCS: 71046; 80053; 83605; 85025; 87502; 99285-25